=== PATIENT | female | born 1945 | race Two or more races ===

== ENCOUNTER 2017-02-23 19:38 | Inpatient (IN) | payer MEDICARE, MEDICAID ==
[~2017-02-23] VITALS: Ht 170.2 cm; Wt 95.3 kg
[~2017-02-23 19:38] MED LIST: AMLO10TA2 PO; BLOO-668 IN; CARV12.52 PO; CLON0.1T PO; GLIM4TAB2 PO; IBUP-1955 PO; LEVA15HF5 IH; LORA1TAB PO; METF500T4 PO; NITR1PAT5 TD; VALS1TAB54 PO
--- NOTE | 2017-02-23 19:40 | NUR ---
BBRA FROM HOME; CHEST PRESSURE, ON AND OFF. HIGH BLOOD PRESSURE. GOWNED PT. PLACED ON MONITOR. AWAITING MD ORDER
--- NOTE | 2017-02-23 19:50 | NUR ---
DR ERICKSON AT BEDSIDE FOR EVAL
[2017-02-23] MEDS ORDERED: ASPIRIN 325 MG TABLET ONE (19:51)
--- NOTE | 2017-02-23 19:51 | NUR ---
EKG IN PROGRESS
[2017-02-23 19:58] LABS: BASOPHILS # (AUTO) 0.1 /CMM (0.0-0.2); BASOPHILS % (AUTO) 1.5 % (0.0-2.0); EOSINOPHILS # (AUTO) 0.2 /CMM (0.0-0.7); EOSINOPHILS % (AUTO) 4.3 % (0.0-6.0); HEMATOCRIT 38 % (33-45); HEMOGLOBIN 12.5 g/dL (11.5-14.8); LYMPHOCYTES # (AUTO) 1.7 /CMM (0.8-4.8); LYMPHOCYTES % (AUTO) 36.3 % (20.0-44.0); MEAN CORPUSCULAR HEMOGLOBIN 28 PG (26.0-33.0); MEAN CORPUSCULAR HGB CONC 33 g/dl (31.0-36.0); MEAN CORPUSCULAR VOLUME 84 fL (82-100); MONOCYTES # (AUTO) 0.4 /CMM (0.1-1.30); MONOCYTES % (AUTO) 9.2 % (2.0-12.0); NEUTROPHILS # (AUTO) 2.4 /CMM (1.8-8.9); NEUTROPHILS % (AUTO) 48.7 % (43.0-81.0); PLATELET COUNT (AUTO) 72 /CMM (150-450); RDW COEFFICIENT OF VARIATION 14.5 (11.5-15.0); RED BLOOD CELL COUNT(AUTO) 4.49 MIL/uL (4.0-5.2); WHITE BLOOD COUNT (AUTO) 4.8 K/uL (4.3-11.0)
[2017-02-23] MEDS ORDERED: ASPIRIN 325 MG TABLET PO ONE (20:00)
[2017-02-23 20:11] LABS: CALCIUM, SERUM 8.2 mg/dL (8.5-10.1); CARBON DIOXIDE 28 mmol/L (21-32); CHLORIDE 109 mmol/L (98-107); CREATININE 0.8 mg/dL (0.6-1.3); GLUCOSE 222 mg/dL (74-106); POTASSIUM 3.8 mmol/L (3.5-5.1); SODIUM SERUM 143 mmol/L (136-145); UREA NITROGEN, BLOOD 13 mg/dL (7-18)
[2017-02-23 20:20] LABS: TROPONIN I < 0.017 ng/mL (0.00-0.056)
[2017-02-23 20:29] LABS: INR 0.98 (0.87-1.13); PROTHROMBIN TIME 10.2 SECS (9.5-12.7)
[2017-02-23] MEDS ORDERED: CLONIDINE HCL 0.1 MG TABLET PO ONE (20:30)
--- NOTE | 2017-02-23 20:33 | NUR ---
CLINICAL INFORMATICS STRATEGIST AT BEDSIDE
[2017-02-23] MEDS ORDERED: CLONIDINE HCL 0.1 MG TABLET ONE ×2 (20:34→22:20)
--- NOTE | 2017-02-23 20:50 | NUR ---
GAVE REPORT TO [facility]-[address] LEE
[2017-02-23 21:00] VITALS: BP 187/84
--- NOTE | 2017-02-23 21:00 | NUR ---
PT TRANSPORTED TO 306 IN STABLE CONDITION VIA ACLS PROTOCOL
[2017-02-23 21:15] LABS: BASOPHILS % (MANUAL) 1 % (0.0-2.0); EOSINOPHILS % (MANUAL) 2 % (0-4); LYMPHOCYTES % (MANUAL) 33 % (16-48); MONOCYTES % (MANUAL) 5 % (0-11.0); NEUTROPHILS % (MANUAL) 59 (42-76)
--- NOTE | 2017-02-23 21:20 | NUR ---
EHS TEACHER NOTE RECEIVED PATIENT FROM ER VIA BRITTNEY PATIENT IS ALERT AND ORIENTEDX3, AMBULATORY, COMPLAINS OF MILD SOB, DENIES CHEST PAIN AT THIS TIME. IV ON LEFT HAND IS PATENT AND INTACT. SKIN IS INTACT. PATIENT'S BP IS 187/84 PULSE 70. WILL CONTACT MD LEE FOR ADMISSION ORDER. TELE MONITOR SR 72. SRX2, BED IN LOW POSITION, CALL LIGHT WITHIN REACH, WILL CONTINUE TO MONITOR PATIENT.
--- NOTE | 2017-02-23 21:30 | NUR ---
PATTERN FINISHER NOTE GOT AN ADMISSION ORDER FROM DR LEE. REGARDING HER HOME MEDS, PT ALREADY TOOK ALL THE DAILY BP MED, WILL START FROM TOMORROW MORNING. ABOUT CLONIDINE 0.1MG WEEKLY PATCH, PATIENT STATED THAT SHE PUT A NEW PATCH ON HER RIGHT BACK TODAY, WILL RESUME IT FROM NEXT WEEK. PLACED PRN MED ORDERS ONLY. WILL SEND HOME MEDS TO PHARMACY IN THE MORNING. ORDERS PLACED IN THE SYSTEM, WILL CARRY OUT ACCORDINGLY.
[2017-02-23] MEDS ORDERED: ENOXAPARIN SODIUM 80 MG/0.8 ML DISP.SYRIN SQ ONE (22:18)
[2017-02-23] MEDS ORDERED: ATORVASTATIN 10 MG TABLET ONE (22:21)
[2017-02-23] MEDS: ATORVASTATIN 10 MG TABLET PO SCH (22:24)
[2017-02-23] MEDS ORDERED: *INSULIN REGULAR(HUMULIN R)HUM 100 UNIT/ML VIAL SQ PRN (22:30)
[2017-02-23] MEDS ORDERED: ACETAMINOPHEN 325 MG TABLET PO PRN (22:30)
[2017-02-23] MEDS ORDERED: ENOXAPARIN SODIUM 80 MG/0.8 ML DISP.SYRIN SQ SCH (22:30)
[2017-02-23] MEDS ORDERED: CLONIDINE HCL 0.1 MG TABLET PO PRN (22:30)
[2017-02-23] MEDS ORDERED: LORAZEPAM 1 MG TABLET PO PRN (22:30)
[2017-02-23] MEDS ORDERED: MORPHINE SULFATE INJ 2 MG/ML DISP.SYRIN IV PRN (22:30)
[2017-02-23] MEDS ORDERED: DEXTROSE 50%-WATER 50 ML DISP.SYRIN IV PRN (22:30)
[2017-02-23] MEDS ORDERED: LORAZEPAM 1 MG TABLET ONE (22:32)
--- NOTE | 2017-02-23 22:40 | NUR ---
CASH POSTER NOTE CLONIDINE 0.1MG PO GIVEN SINCE HER BP UPON ADMISSION WAS 187/84. WILL REASSESS HER BP AROUND MIDNIGHT. ATIVAN 1MG PO ALSO GIVEN PER PATIENT'S REQUEST FOR SLEEP.
[2017-02-23] MEDS ORDERED: IBUPROFEN 600 MG TABLET PO PRN (23:00)
[2017-02-24] VITALS (7 sets, daily range): BP systolic 119–142; BP diastolic 52–79
[2017-02-24] MEDS: INSULIN REGULAR, HUMAN 100 UNIT/ML 3 ML VIAL SQ PRN ×2 (05:46→21:38)
[2017-02-24] MEDS: BLOOD SUGAR DIAGNOSTIC 1 EACH STRIP VI SCH ×4 (05:46→21:27)
[2017-02-24 06:40] LABS: BASOPHILS % (AUTO) 0.5 % (0.0-2.0); EOSINOPHILS # (AUTO) 0.2 /CMM (0.0-0.7); EOSINOPHILS % (AUTO) 4.6 % (0.0-6.0); HEMATOCRIT 36 % (33-45); LYMPHOCYTES # (AUTO) 1.8 /CMM (0.8-4.8); LYMPHOCYTES % (AUTO) 42.5 % (20.0-44.0); MEAN CORPUSCULAR HEMOGLOBIN 28 PG (26.0-33.0); MEAN CORPUSCULAR HGB CONC 34 g/dl (31.0-36.0); MEAN CORPUSCULAR VOLUME 84 fL (82-100); MONOCYTES # (AUTO) 0.4 /CMM (0.1-1.30); MONOCYTES % (AUTO) 8.8 % (2.0-12.0); NEUTROPHILS # (AUTO) 1.8 /CMM (1.8-8.9); NEUTROPHILS % (AUTO) 43.6 % (43.0-81.0); PLATELET COUNT (AUTO) 64 /CMM (150-450); RDW COEFFICIENT OF VARIATION 15.2 (11.5-15.0); RED BLOOD CELL COUNT(AUTO) 4.24 MIL/uL (4.0-5.2); WHITE BLOOD COUNT (AUTO) 4.2 K/uL (4.3-11.0)
--- NOTE | 2017-02-24 06:44 | NUR ---
DATABASE ADMINISTRATION MANAGER NOTE PATIENT IS RESTING IN BED COMFORTABLY, NO S/S OF RESPIRATORY DISTRESS OR PAIN AT THIS TIME. IV ON LEFT HAND IS PATENT AND INTACT, HL ONLY. BS 146 THIS MORNING, 2UNITS OF INSULIN COVERAGE. TELE MONITOR SB 54. WILL ENDORSE TO DAY SHIFT NURSE FOR ANNA.
[2017-02-24 07:05] LABS: CALCIUM, SERUM 8.4 mg/dL (8.5-10.1); CREATININE 0.6 mg/dL (0.6-1.3); MAGNESIUM 1.9 mg/dL (1.8-2.4); POTASSIUM 4.2 mmol/L (3.5-5.1)
[2017-02-24 07:50] LABS: THYROID STIMULATING HORMONE 2.581 uIU/mL (0.358-3.74)
[2017-02-24] MEDS ORDERED: ACETAMINOPHEN ES 500 MG TABLET PO PRN (08:00)
--- NOTE | 2017-02-24 08:08 | NUR ---
TELE/RN RECEIVED PATIENT RESTING IN BED ALERT AND ORIENTED X4, IN NO APPARENT DISTRESS, RESPIRATIONS EVEN AND UNLABORED, ON 02 AT 2LPM VIA NC. PER TELE MONITRO SB 56. PATIENT DENIES PAIN OR DISCOMFORT AT THIS TIME. NO PRESENTS OF CHEST PAIN, N/V. IV TO LEFT HAND 20 INTACT H/L. SAFETY MEASURES RENDERED, CALL LIGHT PLACED WITHIN REACH. WILL CONTINUE TO MONITOR.
[2017-02-24] MEDS ORDERED: LOSARTAN POTASSIUM 50 MG TABLET PO SCH (09:30)
[2017-02-24 09:50] LABS: THYROID STIMULATING HORMONE 2.666 uIU/mL (0.358-3.74)
--- NOTE | 2017-02-24 09:54 | NUR ---
tele/rn notes discussed poc with dr. Watkins, requested for ct results that patient had done 10 days ago from [facility] [place] office. waiting on fax
[2017-02-24] MEDS ORDERED: IBUPROFEN 600 MG TABLET PO PRN (10:00)
[2017-02-24] MEDS ORDERED: ALBUTEROL FS 2.5 MG/3 ML VIAL.NEB NEB PRN (10:00)
[2017-02-24] MEDS ORDERED: NITROGLYCERIN PATCH 0.2 MG/HR PATCH.TD24 TD SCH ×3 (10:00→15:00)
[2017-02-24] MEDS ORDERED: Medication Not On Formulary EA (Valsartan/Hydrochlorothiazide (Diovan Hct 320-25 Mg Tabl PO SCH (10:00)
[2017-02-24] MEDS ORDERED: LORAZEPAM 1 MG TABLET PO PRN (10:00)
[2017-02-24] MEDS ORDERED: Medication Not On Formulary EA (Levalbuterol Tartrate (Xopenex Hfa) 2 PUFF) IH PRN (10:00)
[2017-02-24] MEDS ORDERED: CLONIDINE HCL 0.1 MG TABLET PO PRN (10:00)
[2017-02-24] MEDS: ENOXAPARIN SODIUM 80 MG/0.8 ML DISP.SYRIN SQ SCH ×2 (10:36→21:28)
[2017-02-24] MEDS: METFORMIN 500 MG TABLET PO SCH ×2 (10:38→16:42)
[2017-02-24] MEDS: GLIMEPIRIDE 4 MG TABLET PO SCH ×2 (10:39→16:42)
[2017-02-24] MEDS: CARVEDILOL 12.5 MG TABLET PO SCH ×2 (10:39→16:43)
[2017-02-24] MEDS: HYDROCHLOROTHIAZIDE 25 MG TABLET PO SCH (10:40)
[2017-02-24] MEDS: AMLODIPINE BESYLATE 10 MG TABLET PO SCH (10:40)
[2017-02-24 10:49] LABS: EOSINOPHILS % (MANUAL) 1 % (0-4); LYMPHOCYTES % (MANUAL) 41 % (16-48); MONOCYTES % (MANUAL) 4 % (0-11.0); NEUTROPHILS % (MANUAL) 54 (42-76)
--- NOTE | 2017-02-24 12:14 | NUR ---
TELE/RN NOTES 1200 BLOOD SUGAR CHECK 189MG/DL. PATIENT REFUSING INSULIN COVERAGE. DESPITE OF INSTRUCTIONS GIVEN ON THE IMPORTANCE OF MEDICATION COMPLIANCE, RISK AND BENEFITS PATIENT CONTINUED TO REFUSE.
[2017-02-24] MEDS ORDERED: CLON1PAT2 TD (16:03)
--- NOTE | 2017-02-24 18:36 | NUR ---
TELE/RN NOTES PATIENT RESTING IN BED STABLE, NO SIGNIFICANT CHANGES IN CONDITION, VITAL SIGNS STABLE. ALL DUE MEDICATIONS GIVEN, ALL NEEDS MET AND ATTENDED. PT DENIED ANY CHEST PAIN OR GENERALIZED PAIN DURING THROUGHOUT THE DAY. SAFETY/FALL MEASURES RENDERED, CALL LIGHT PLACED WITHIN REACH. WILL ENDORSE CARE TO ASSET LIABILITY ANALYST FOR ANNA
--- NOTE | 2017-02-24 19:51 | NUR ---
TELE DOBBY LOOMS PEGGER INITIAL NOTES SEEN PT IN BED AFTER GOT REPORT FROM AM NURSE, AWAKE AND ALERT JONATHON SPEAKING , AWARE OF HER STRESS TEST IN AM . DENIES ANY CHEST PAIN OR ANY DISCOMFORT AT THIS TIME. HEPLOCK PATENT AND INTACT. SHE'S ON TELE SR HEART RATE 65 PER MONITOR. PT ALSO AWARE THAT SHE WILL BE NPO AFTER MIDNIGHT BECAUSE OF HER TEST IN AM. KEPT HER WARM AND COMFORTABLE AT ALL TIMES. PLACE CALL LIGHT AT REACH. WILL CONTINUE TO MONITOR.
[2017-02-24] MEDS: ATORVASTATIN 10 MG TABLET PO SCH (21:27)
--- NOTE | 2017-02-24 21:38 | NUR ---
TELE FREIGHT BRAKE OPERATOR NOTES ROUTINE MEDS GIVEN AND BLOOD SUGAR CHECKED 131, PT REFUSED INSULIN , NPO AFTER MIDNIGHT FOR HER STRESS TEST . NO IVF INFUSING AT THIS TIME, SHE ALSO REFUSED TO EAT . NO SIGNS OF HYPO GLYCEMIA NOTED. SHE STATED SHE HAVE MEDICINE FOR SUGAR THAT IS PO ONLY AND SHE JUST TOOK THIS AFTERNOON AFTER DINNER. WILL CONTINUE TO MONITOR.
[2017-02-25 00:07] VITALS: BP 128/69
[2017-02-25 00:12] VITALS: BP 128/69
[2017-02-25 04:37] VITALS: BP 131/56
[2017-02-25 06:30] LABS: BASOPHILS % (AUTO) 0.5 % (0.0-2.0); EOSINOPHILS # (AUTO) 0.1 /CMM (0.0-0.7); EOSINOPHILS % (AUTO) 3.2 % (0.0-6.0); HEMATOCRIT 36 % (33-45); LYMPHOCYTES # (AUTO) 1.5 /CMM (0.8-4.8); LYMPHOCYTES % (AUTO) 38.7 % (20.0-44.0); MEAN CORPUSCULAR HEMOGLOBIN 28 PG (26.0-33.0); MEAN CORPUSCULAR HGB CONC 33 g/dl (31.0-36.0); MEAN CORPUSCULAR VOLUME 85 fL (82-100); MONOCYTES # (AUTO) 0.3 /CMM (0.1-1.30); NEUTROPHILS # (AUTO) 1.9 /CMM (1.8-8.9); NEUTROPHILS % (AUTO) 49.6 % (43.0-81.0); PLATELET COUNT (AUTO) 58 /CMM (150-450); RDW COEFFICIENT OF VARIATION 15.5 (11.5-15.0); RED BLOOD CELL COUNT(AUTO) 4.28 MIL/uL (4.0-5.2); WHITE BLOOD COUNT (AUTO) 3.8 K/uL (4.3-11.0)
[2017-02-25] MEDS: BLOOD SUGAR DIAGNOSTIC 1 EACH STRIP VI SCH ×2 (06:52→12:06)
[2017-02-25 06:57] LABS: ALBUMIN 2.6 g/dL (3.4-5.0); BILIRUBIN,TOTAL 0.6 mg/dL (0.2-1.0); CALCIUM, SERUM 8.5 mg/dL (8.5-10.1); CREATININE 0.5 mg/dL (0.6-1.3)
[2017-02-25 07:25] LABS: BAND % (MANUAL) 2 % (0.0-5.0); EOSINOPHILS % (MANUAL) 4 % (0-4); LYMPHOCYTES % (MANUAL) 35 % (16-48); MONOCYTES % (MANUAL) 7 % (0-11.0); NEUTROPHILS % (MANUAL) 52 (42-76)
--- NOTE | 2017-02-25 07:30 | NUR ---
TELE MEDICAL BILLING ASSOCIATE CLOSING NOTES PT SAW SITTING ON THE CHAIR AFTER SHE DID HER USUAL MORNING ROUTINE. BLOOD SUGAR CHECKED DONE 142, NO INSULIN COVERAGE AT THIS TIME BECAUSE PT NPO FOR STRESS TEST. NO SIGNS OG HYPER GLYCEMIA NOTED. SLEPT WELL AND BEEN STABLE SIXTO THE NIGHT. TELE SR PER MONITOR. KEPT HER WARM AND COMFORTABLE AT ALL TIMES. DENIES ANY CHEST PAIN. ENDORSE TO AM NURSE .
--- NOTE | 2017-02-25 07:40 | NUR ---
WOOD FLOUR MILLER NOTES PT IN BED, ASLEEP, EASY TO AROUSE, ALERT AND ORIENTED, NO COMPLAINT OF PAIN OR ANY DISCOMFORT, BREATHING PATTERN NORMAL, PT INFORMED OF PLAN OF CARE, VERBALIZED UNDERSTANDING, PT FOR STRESS TEST TODAY, CALL LIGHT WITHIN REACH.
[2017-02-25 08:00] VITALS: BP 140/61
[2017-02-25] MEDS ORDERED: REGADENOSON 0.4 MG/5 ML DISP.SYRIN IVP ONE (08:00)
[2017-02-25] MEDS: GLIMEPIRIDE 4 MG TABLET PO SCH (09:00)
[2017-02-25] MEDS ORDERED: VALSARTAN 80 MG TABLET PO SCH (09:00)
[2017-02-25] MEDS ORDERED: ERGOCALCIFEROL (VITAMIN D 2) 50,000 UNIT CAPSULE PO SCH (09:30)
--- NOTE | 2017-02-25 11:28 | NUR ---
RN MS NOTES PT IN BED, AWAKE, ALERT AND ORIENTED, DENIES PAIN, NOT IN DISTRESS, COMPLETED STRESS TEST, TOLERATED WELL, PLAN OF CARE DISCUSSED WITH PT, VERBALIZED UNDERSTANDING.
[2017-02-25] MEDS: HYDROCHLOROTHIAZIDE 25 MG TABLET PO SCH (11:47)
[2017-02-25] MEDS: METFORMIN 500 MG TABLET PO SCH (11:47)
[2017-02-25] MEDS: AMLODIPINE BESYLATE 10 MG TABLET PO SCH (11:47)
[2017-02-25] MEDS: CARVEDILOL 12.5 MG TABLET PO SCH (11:48)
[2017-02-25] MEDS: ENOXAPARIN SODIUM 80 MG/0.8 ML DISP.SYRIN SQ SCH (11:58)
[2017-02-25 16:00] VITALS: BP 148/70
--- NOTE | 2017-02-25 16:20 | NUR ---
RN MS NOTES PT IN BED, AWAKE, ALERT AND ORIENTED, DENIES ANY CHEST PAIN, NO OTHER COMPLAINT OF PAIN OR ANY DISCOMFORT, BREATHING PATTERN NORMAL, RECEIVED DISCHARGE ORDER FROM DR. LEE, PT INFORMED, DISCHARGE MEDICATIONS AND INSTRUCTIONS PROVIDED TO PT, PT TO SEE MD IN 3 DAYS, VERBALIZED UNDERSTANDING, BELONGINGS ACCOUNTED FOR, PT REFUSED FLU AND PNA VACCINES, EDUCATION PROVIDED. PICKED UP BY FAMILY MEMBERS, LEFT IN STABLE CONDITION.
[2017-03-02] MEDS ORDERED: CLONIDINE HCL 0.1MG/24H PTWK 1 EA PATCH TD SCH (09:00)
== END 2017-02-25 16:00 | disposition home or self-care (01) | DRG 303 ==
LOC: ER 19:42 → TELE 20:52 → MED 02-25 10:43
PROVIDERS: ADMIT Family Medicine; ATTEND Family Medicine
DX: I25.119 Atherosclerotic heart disease of native coronary artery with unspecified angina pectoris (principal); D61.818 Other pancytopenia; D69.6 Thrombocytopenia, unspecified; E11.65 Type 2 diabetes mellitus with hyperglycemia; E66.01 Morbid (severe) obesity due to excess calories; I11.0 Hypertensive heart disease with heart failure; I50.9 Heart failure, unspecified; I47.1 Supraventricular tachycardia; I48.91 Unspecified atrial fibrillation; K21.9 Gastro-esophageal reflux disease without esophagitis; I10 Essential (primary) hypertension; G89.29 Other chronic pain; Z79.84 Long term (current) use of oral hypoglycemic drugs; G47.33 Obstructive sleep apnea (adult) (pediatric); F41.9 Anxiety disorder, unspecified; E78.5 Hyperlipidemia, unspecified; R41.3 Other amnesia; R32 Unspecified urinary incontinence; F43.10 Post-traumatic stress disorder, unspecified; Z79.899 Other long term (current) drug therapy; G47.00 Insomnia, unspecified; H91.90 Unspecified hearing loss, unspecified ear; D63.8 Anemia in other chronic diseases classified elsewhere; E03.9 Hypothyroidism, unspecified; Z68.32 Body mass index [BMI] 32.0-32.9, adult; E11.9 Type 2 diabetes mellitus without complications; M17.0 Bilateral primary osteoarthritis of knee
CPT/HCPCS: 36415; 71010-TC; 80048-TC; 80053-TC; 80061-TC; 82306; 82962-TC; 83540-TC; 83735-TC; 84439-TC; 84443-TC; 84484-TC; 85025-TC; 85730-TC; 87081-TC; 93307-TC; A4606; A9502; J1650; J1815; J2785; Z7610

== ENCOUNTER 2017-07-15 21:39 | Emergency (ER) | payer MEDICARE, MEDICAID ==
[~2017-07-15] VITALS: Ht 165.1 cm; Wt 99.8 kg
[~2017-07-15 21:39] MED LIST changes: +CLON1PAT2 TD; +LEVA15HF4 IH; -LEVA15HF5 IH; -NITR1PAT5 TD
[2017-07-15] MEDS ORDERED: LORAZEPAM 1 MG TABLET PO ONE (23:00)
[2017-07-15] MEDS ORDERED: LORAZEPAM 1 MG TABLET ONE (23:09)
[2017-07-15 23:12] LABS: APPEARANCE,URINE CLEAR (CLEAR); BILIRUBIN,URINE NEGATIVE (NEGATIVE); BLOOD, URINE NEGATIVE Ery/uL (NEGATIVE); COLOR,URINE YELLOW (YELLOW); KETONES,URINE NEGATIVE (NEGATIVE); LEUKOCYTE ESTERASE ,URINE NEGATIVE (NEGATIVE); NITRITE, URINE NEGATIVE (NEGATIVE); PH,URINE 7.5 (5.0-8.0); PROTEIN,URINE NEGATIVE (NEGATIVE); UGLUCOSE NEGATIVE (NEGATIVE); UROBILINOGEN,URINE 0.2 EU/dL (0.2)
--- NOTE | 2017-07-15 23:15 | NUR ---
PT PRESENTED TO THE ER WITH A C/O ANXIETY AND HIGH BLOOD PRESSURE. PT AMBULATED TO BED #13. PT IS ON THE MONITOR AND CONTINUOUS PULSE OX. FAMILY IS AT THE BEDSIDE.
--- NOTE | 2017-07-16 00:05 | NUR ---
Patient discharged to home in stable condition. Written and verbal after care instructions given. Patient verbalizes understanding of instruction AND RX. PT REC'D A COPY OF ALL LABS AND EKG. PT'S FAMILY IS DRIVING PT HOME. VSS. PT AMBULATED OUT WITH A STEADY GAIT.
[2017-07-16 00:14] VITALS: BP 150/65
== END 2017-07-16 00:05 | disposition home or self-care (01) ==
LOC: ER 21:40
DX: R06.02 Shortness of breath (principal); I10 Essential (primary) hypertension; E11.9 Type 2 diabetes mellitus without complications; F41.9 Anxiety disorder, unspecified; G89.29 Other chronic pain
CPT/HCPCS: 71045-TC; 81000-TC; A4606; Z7610

== ENCOUNTER 2018-11-17 10:58 | Emergency (ER) | payer MEDICARE, MEDICAID ==
[~2018-11-17] VITALS: Ht 160 cm; Wt 98.4 kg
[~2018-11-17 10:58] MED LIST changes: -AMLO10TA2 PO; +AMLO10TA7 PO; +METF-440 PO; -METF500T4 PO
--- NOTE | 2018-11-17 11:05 | NUR ---
PT BIB DAUGHTER C/O R SHOULDER PAIN, UNABLE TO MOVE. REDUCED ON THE 11/07/18. STILL HURTING, PT IS AAOX3, NOT IN RESPIRATORY DISTRESS, KEPT RESTED AND COMFORTABLE, WILL CONTINUE TO MONITOR.
--- NOTE | 2018-11-17 11:14 | NUR ---
DR. MCKEON AT BEDSIDE FOR EVAL.
--- NOTE | 2018-11-17 11:27 | NUR ---
RPG PROGRAMMER ANALYST AT BEDSIDE FOR XRAY.
[2018-11-17] MEDS ORDERED: HYDROCODONE/APAP 5/325MG 1 EACH TABLET ONE (11:55)
[2018-11-17] MEDS ORDERED: IBUPROFEN 600 MG TABLET PO ONE (11:55)
[2018-11-17] MEDS: IBUPROFEN 600 MG TABLET PO ONE (12:01)
[2018-11-17] MEDS: HYDROCODONE/APAP 5/325MG 1 EACH TABLET PO ONE (12:01)
--- NOTE | 2018-11-17 12:06 | NUR ---
Patient discharged to home in stable condition. Written and verbal after care instructions given. Patient verbalizes understanding of instruction.
[2018-11-17 12:07] VITALS: BP 148/82
== END 2018-11-17 12:08 | disposition home or self-care (01) ==
LOC: ER 11:02
DX: S42.291A Other displaced fracture of upper end of right humerus, initial encounter for closed fracture (principal); I10 Essential (primary) hypertension; E11.9 Type 2 diabetes mellitus without complications; F41.9 Anxiety disorder, unspecified; G89.29 Other chronic pain; Z98.890 Other specified postprocedural states; Z79.84 Long term (current) use of oral hypoglycemic drugs; Z79.899 Other long term (current) drug therapy; W19.XXXA Unspecified fall, initial encounter; Y93.89 Activity, other specified; Y92.89 Other specified places as the place of occurrence of the external cause; Y99.8 Other external cause status
CPT/HCPCS: 73030-TC

== ENCOUNTER 2022-07-25 13:33 | Inpatient (IN) | payer MEDICARE, OTHER ==
[~2022-07-25] VITALS: Ht 165.1 cm; Wt 123.2 kg
[~2022-07-25 13:33] MED LIST changes: +AMLO-213 PO; -AMLO10TA7 PO; -GLIM4TAB2 PO; +GLIM4TAB37 PO; -VALS1TAB54 PO; +VALS1TAB8 PO
--- NOTE | 2022-07-25 13:45 | NUR ---
BIBA RA60 From Home Leg swelling/SOB/Weakness. Chinese speaking only
--- NOTE | 2022-07-25 14:01 | NUR ---
blood sample obtained sent to lab
--- NOTE | 2022-07-25 14:01 | NUR ---
established iv line left hand 22 g , infusing well
[2022-07-25 14:46] LABS: BASOPHILS % (AUTO) 0.4 % (0.0-2.0); EOSINOPHILS % (AUTO) 2.4 % (0.0-6.0); HEMATOCRIT 34 % (33-45); HEMOGLOBIN 10.9 g/dL (11.5-14.8); LYMPHOCYTES # (AUTO) 1.6 K/uL (0.8-4.8); MEAN CORPUSCULAR HGB CONC 32 g/dl (31.0-36.0); MEAN CORPUSCULAR VOLUME 89 fL (82-100); MONOCYTES # (AUTO) 0.8 K/uL (0.1-1.30); NEUTROPHILS # (AUTO) 3.7 K/uL (1.8-8.9); NEUTROPHILS % (AUTO) 59.2 % (43.0-81.0); PLATELET COUNT (AUTO) 80 K/uL (150-450); RED BLOOD CELL COUNT(AUTO) 3.86 MIL/uL (4.0-5.2); WHITE BLOOD COUNT (AUTO) 6.3 K/uL (4.3-11.0)
--- NOTE | 2022-07-25 15:03 | NUR ---
sent covid swab to lab
[2022-07-25 15:11] LABS: ALANINE AMINOTRANSFERASE 39 U/L (12-78); ALBUMIN 2.3 g/dL (3.4-5.0); ALKALINE PHOSPHATASE 88 U/L (46-116); ASPARTATE AMINOTRANSFERASE 37 U/L (15-37); BILIRUBIN,DIRECT 0.5 mg/dL (0.0-0.2); CALCIUM, SERUM 8.1 mg/dL (8.5-10.1); CARBON DIOXIDE 25 mmol/L (21-32); CHLORIDE 108 mmol/L (98-107); CREATININE 2.5 mg/dL (0.6-1.3); GLUCOSE 234 mg/dL (74-106); POTASSIUM 5.1 mmol/L (3.5-5.1); SODIUM SERUM 141 mmol/L (136-145); TOTAL PROTEIN, SERUM 6.1 g/dL (6.4-8.2)
[2022-07-25 15:29] LABS: UREA NITROGEN, BLOOD 84 mg/dL (7-18)
[2022-07-25] MEDS ORDERED: FUROSEMIDE 20 MG/2 ML VIAL IV ONE (16:00)
[2022-07-25] MEDS ORDERED: ASPIRIN 325 MG TABLET PO ONE (16:00)
[2022-07-25] MEDS ORDERED: HYDROCODONE/APAP 5/325MG TABLET PO PRN (16:30)
[2022-07-25] MEDS ORDERED: DEXTROSE 50%-WATER 50 ML DISP.SYRIN IV PRN (16:30)
[2022-07-25] MEDS ORDERED: MAG HYDROX/AL HYDROX/SIMETH 30 ML UDC PO PRN (16:30)
[2022-07-25] MEDS ORDERED: MORPHINE SULFATE INJ 2 MG/ML DISP.SYRIN IV PRN (16:30)
[2022-07-25] MEDS ORDERED: Z GUARD REMEDY 4 OZ OINT TP PRN (16:30)
[2022-07-25] MEDS ORDERED: MAGNESIUM HYDROXIDE 30 ML UDC PO PRN (16:30)
--- NOTE | 2022-07-25 16:39 | NUR ---
ROOM 327-2
[2022-07-25 16:57] LABS: EOSINOPHILS % (MANUAL) 3 % (0-4); LYMPHOCYTES % (MANUAL) 23 % (16-48); MONOCYTES % (MANUAL) 11 % (0-11.0); NEUTROPHILS % (MANUAL) 63 (42-76)
[2022-07-25] MEDS: BLOOD SUGAR DIAGNOSTIC 1 EACH STRIP IN SCH ×2 (17:30→22:26)
--- NOTE | 2022-07-25 18:14 | NUR ---
called the floor nurse multiple times , no answer
--- NOTE | 2022-07-25 18:14 | NUR ---
floor supervisor advised to give report at bedside
[2022-07-25] MEDS ORDERED: LEVALBUTEROL HCL NEB 1.25 MG/0.5 ML VIAL.NEB NEB PRN (18:30)
[2022-07-25] MEDS ORDERED: LINA145C PO (19:00)
[2022-07-25] MEDS ORDERED: FURO40TA5 PO (19:00)
[2022-07-25] MEDS ORDERED: ESCI10TA PO (19:00)
[2022-07-25] MEDS ORDERED: CETI10TA14 PO (19:00)
[2022-07-25] MEDS ORDERED: ERGO500093 PO (19:00)
[2022-07-25] MEDS ORDERED: AMIT25TA9 PO (19:00)
[2022-07-25] MEDS ORDERED: CELE-85 PO (19:00)
[2022-07-25] MEDS ORDERED: MONT10TA22 PO (19:00)
[2022-07-25] MEDS ORDERED: CLON1PAT TD (19:00)
[2022-07-25] MEDS ORDERED: FLUT1BLS6 INH (19:00)
[2022-07-25] MEDS ORDERED: DEXL60CA3 PO (19:00)
[2022-07-25] MEDS ORDERED: SPIR25TA6 PO (19:00)
[2022-07-25] MEDS ORDERED: GABA300C PO (19:00)
[2022-07-25] MEDS ORDERED: DAPA10TA PO (19:00)
[2022-07-25] MEDS ORDERED: POTA-88 PO (19:00)
[2022-07-25] MEDS ORDERED: MIRT-91 PO (19:00)
[2022-07-25] MEDS ORDERED: POLY15DR40 EACHEYE (19:00)
[2022-07-25] MEDS ORDERED: SACU1TAB4 PO (19:00)
[2022-07-25] MEDS ORDERED: DILT180T9 PO (19:00)
[2022-07-25] MEDS ORDERED: DULA1.5P SQ (19:00)
--- NOTE | 2022-07-25 19:10 | NUR ---
LIBRARY CIRCULATION ASSISTANTPASTE UP WORKER NOTES RECEIVED PATIENT AWAKE AND SITTING IN BED. PATIENT CAME FROM ER AT 1840. THE MORNING SHIFT NURSE JANN GAVE REPORT FOR THE PATIENT. PATIENT IS A/O TIMES 3. NO PAIN NOTED. ON 02 INHALATION VIA NASAL CANNULA AT 4L/MIN . 02 SAT NOTED 98%. LIBYAN SPEAKING. ABLE TO MAKE NEEDS KNOWN. SON AT THE BED SIDE. ALL NEEDS ATTENDED. ON TELE MONITOR READING SR 85. IV ACCESS AT THE LEFT HAND G # 22 INTACT. OVERALL SKIN INTACT. BRUISE NOTED ON THE RIGHT UPPER ARM. ALL THE BELONGING ACCOUNTED AND SIGNED FOR. PATIENT ABLE TO USE BED SIDE COMMODE. ALL SAFETY MEASURES IN PLACE. BED LOCKED IN THE LOWEST POSITION. CALL LIGHT AND TABLE IN EASY REACH . SIDE RAILS UP TIMES 2. WILL CONTINUE TO MONITOR CLOSELY.
[2022-07-25] MEDS: GLIMEPIRIDE 4 MG TABLET PO SCH (19:45)
[2022-07-25 20:00] VITALS: BP 148/62
[2022-07-25] MEDS ORDERED: HEPARIN SODIUM, PORCINE 5000 UNITS/1 ML VIAL SQ SCH (21:00)
[2022-07-25] MEDS: INSULIN REGULAR, HUMAN 100 UNIT/ML 3 ML VIAL SQ PRN (22:28)
[2022-07-25 22:38] LABS: BILIRUBIN,URINE NEGATIVE (NEGATIVE); COLOR,URINE YELLOW (YELLOW); LEUKOCYTE ESTERASE ,URINE NEGATIVE (NEGATIVE); NITRITE, URINE NEGATIVE (NEGATIVE); PH,URINE 5.5 (5.0-8.0); PROTEIN,URINE TRACE mg/dl (NEGATIVE); UGLUCOSE NEGATIVE (NEGATIVE); UROBILINOGEN,URINE 0.2 EU/dL (0.2)
[2022-07-25 22:43] LABS: BACTERIA,URINE Few /HPF (None Seen); SQUAMOUS EPITHELIAL CELL,UR Few /HPF (None Seen); WBC,URINE 0-2 /HPF (0-3)
[2022-07-26] VITALS: BP 139/79
[2022-07-26 04:00] VITALS: BP 112/83
[2022-07-26] MEDS: BLOOD SUGAR DIAGNOSTIC 1 EACH STRIP IN SCH ×4 (05:56→22:07)
[2022-07-26 06:35] LABS: BASOPHILS % (AUTO) 0.3 % (0.0-2.0); HEMATOCRIT 30 % (33-45); HEMOGLOBIN 9.8 g/dL (11.5-14.8); LYMPHOCYTES # (AUTO) 1.6 K/uL (0.8-4.8); LYMPHOCYTES % (AUTO) 28.1 % (20.0-44.0); MEAN CORPUSCULAR HGB CONC 32 g/dl (31.0-36.0); MEAN CORPUSCULAR VOLUME 88 fL (82-100); MONOCYTES % (AUTO) 18.3 % (2.0-12.0); NEUTROPHILS # (AUTO) 2.7 K/uL (1.8-8.9); NEUTROPHILS % (AUTO) 49.3 % (43.0-81.0); PLATELET COUNT (AUTO) 58 K/uL (150-450); RED BLOOD CELL COUNT(AUTO) 3.43 MIL/uL (4.0-5.2); WHITE BLOOD COUNT (AUTO) 5.5 K/uL (4.3-11.0)
[2022-07-26 07:16] LABS: CALCIUM, SERUM 8.4 mg/dL (8.5-10.1); CARBON DIOXIDE 29 mmol/L (21-32); CHLORIDE 110 mmol/L (98-107); CREATININE 1.6 mg/dL (0.6-1.3); GLUCOSE 122 mg/dL (74-106); MAGNESIUM 2.5 mg/dL (1.8-2.4); POTASSIUM 4.8 mmol/L (3.5-5.1); SODIUM SERUM 143 mmol/L (136-145); UREA NITROGEN, BLOOD 78 mg/dL (7-18)
[2022-07-26 07:22] LABS: CHOLESTEROL 169 mg/dL (<200); HDL CHOLESTEROL 43 mg/dL (40-60); THYROID STIMULATING HORMONE 2.128 uIU/mL (0.358-3.74); TRIGLYCERIDES 67 mg/dL (30-150)
--- NOTE | 2022-07-26 07:30 | NUR ---
COMPUTER PROGRAMMER CHIEF CLOSING NOTES PATIENT IS AWAKE AND SITTING IN BED. PATIENT IS A/O TIMES 3. NO PAIN NOTED. ON 02 INHALATION VIA NASAL CANNULA AT 3L/MIN . 02 SAT NOTED 100%. SAMI SPEAKING. ABLE TO MAKE NEEDS KNOWN. ALL NEEDS ATTENDED. ON TELE MONITOR READING SR 85. IV ACCESS AT THE LEFT HAND G # 22 INTACT. OVERALL SKIN INTACT. BRUISE NOTED ON THE RIGHT UPPER ARM. ALL THE BELONGING ACCOUNTED AND SIGNED FOR. PATIENT ABLE TO USE BED SIDE COMMODE. ALL DUE MEDS GIVEN ORDERED. HELD HEPARIN FOR [address] TOURE ORDER FOR LOW PLATELET. ALL SAFETY MEASURES IN PLACE. BED LOCKED IN THE LOWEST POSITION. CALL LIGHT AND TABLE IN EASY REACH . SIDE RAILS UP TIMES 2. WILL ENDORSE FOR ANNA.
--- NOTE | 2022-07-26 07:30 | NUR ---
TIER IN OPENING NOTES RECEIVED PATIENT ON BED SLEEPING AND A/O X3. ON O2 AT 3LPM VIA NASAL CANNULA TOLERATING WELL. NO SOB NOTED. NOT IN DISTRESS. WITH NO COMPLAINTS OF PAIN AT THIS TIME. ON TELE MONITOR CURRENTLY READING SINUS RHYTHM WITH SOME PACs AT 63BPM. PATIENT NEEDS ASSIST GOING TO THE BEDSIDE COMMODE. WITH IV ACCESS AT THE LEFT HAND G22 SALINE LOCKED, PATENT AND INTACT. SAFETY MEASURES IN PLACED. CALL LIGHT WITHIN REACH. BED ON LOWEST LOCKED POSITION, SIDE RAILS UP X2. WILL CONTINUE TO MONITOR.
[2022-07-26 07:55] LABS: LDL 117 mg/dL (0-99)
[2022-07-26] MEDS: CARVEDILOL 12.5 MG TABLET PO SCH ×2 (08:31→17:16)
[2022-07-26] MEDS: GLIMEPIRIDE 4 MG TABLET PO SCH ×2 (08:37→17:14)
[2022-07-26] MEDS: PANTOPRAZOLE 40 MG TABLET.DR PO SCH (08:37)
[2022-07-26] MEDS: AMLODIPINE BESYLATE 10 MG TABLET PO SCH (08:37)
[2022-07-26 08:53] LABS: ABG BASE EXCESS -4.6 mmol/L; ABG PCO2 30.9 mmHg (35.0-45.0); ABG PO2 85.9 mmHg (75.0-100.0); COHb 0.5 % (0.5-1.5); MetHb 0.3 % (0.0-1.5); O2Hb 95.2 % (94.0-97.0); SITE, ABG Right Radial; VENT MODE, BG RA
[2022-07-26] MEDS ORDERED: FUROSEMIDE 40 MG/4 ML VIAL IV SCH (09:00)
[2022-07-26 12:06] LABS: EOSINOPHILS % (MANUAL) 2 % (0-4); LYMPHOCYTES % (MANUAL) 31 % (16-48); MONOCYTES % (MANUAL) 10 % (0-11.0); NEUTROPHILS % (MANUAL) 57 (42-76)
[2022-07-26] MEDS: INSULIN REGULAR, HUMAN 100 UNIT/ML 3 ML VIAL SQ PRN ×2 (12:32→17:14)
[2022-07-26] MEDS: IPRATROPIUM NEB FS 0.5 MG/2.5 ML AMPUL.NEB NEB SCH ×2 (13:30→20:33)
--- NOTE | 2022-07-26 18:42 | NUR ---
RIBBER CLOSING NOTES PATIENT ON BED RESTING AND A/O X3. ON O2 AT 3LPM VIA NASAL CANNULA TOLERATING WELL. NO SOB NOTED. NOT IN DISTRESS. WITH NO COMPLAINTS OF PAIN AT THIS TIME. ON TELE MONITOR CURRENTLY READING SINUS RHYTHM WITH SOME PACs AT 72BPM. PATIENT NEEDS ASSIST GOING TO THE BEDSIDE COMMODE. WITH IV ACCESS AT THE LEFT HAND G22 SALINE LOCKED, PATENT AND INTACT. DUE MEDS GIVEN. SAFETY MEASURES IN PLACED. CALL LIGHT WITHIN REACH. BED ON LOWEST LOCKED POSITION, SIDE RAILS UP X2. WILL ENDORSE TO NEXT SHIFT FOR ANNA.
--- NOTE | 2022-07-26 19:05 | NUR ---
RN NOTES: RECEIVED ASLEEP ON BED,AWAKE WHEN RN CAME,ORIENTED TO UNIT AND STAFF, REPOSITIONED, KEPT OF SEMI FOWLERS POSITION,ASPIRATION PRECAUTION OBSERVED, ON TELE MONITOR SR-83, NO SIGN OF PAIN OR DISCOMFORT AT THIS TIME,A/O 2-3,DIVEHI SPEAKING,ABLE TO COMMUNICATE NEEDS, , CONTINENT B/B WITH BRP, USES BED SIDE COMMODE WITH ASSIST, KEPT ON CLOSE WATCH, ORIENTED TO UNIT AND STAFF, IV CANNULA ON LH G#20,NO IVF, PER ENDORSEMENT DOPPLER FOR DVT ON BLE WAS CANCELLED,HOLD HEPARIN PLATELET-58, SAFETY PRECAUTION OBSERVED, KEPT CALL LIGHT WITHIN EASY REACH, BED LOW AND LOCKED. -UPON ENDORSEMENT SON WAS PRESENT HE VISITED HIS MOTHER GIVEN UPDATES BY MORNING SHIFT RN, STILL PENDING FOR DISCHARGE SNF VS ARU.
[2022-07-26 20:00] VITALS: BP 127/49
--- NOTE | 2022-07-26 21:30 | NUR ---
PLACED PT ON NOC CPAP 14 PER MD'S ORDER. FIO2 35% . NO RESPIRATORY OR SOB NOTED AT THIS TIME. CPAP MACHINE PLUGGED INTO RED OUTLET . ALARMS ON AND AUDIBLE.. WILL CONTINUE TO MONITOR T/O SHIFT.
--- NOTE | 2022-07-26 23:14 | NUR ---
RN NOTES: 2199 BLOOD SUGAR 126, NO INSULIN PER SCALE.WILL CONTINUE TO MONITOR FOR ANY SIGN OF HYPER/HYPOGLYCEMIA. Addendum: 07/27/22 at 0129 by DESIRE WHITE RN added notes: 2129-STARTED ON CPAP-14 BY RT.
[2022-07-27] VITALS: BP 117/78
--- NOTE | 2022-07-27 01:29 | NUR ---
RN NOTES: TURNING AND REPOSITIONING DONE, ON CPAP-14. Addendum: 07/27/22 at 0408 by DESIRE WHITE RN ADDED NOTES: MORE COMFORTABLE ABLE TO SLEEP AND REST WELL. CHECK AT FREQUENT INTERVALS.
[2022-07-27] MEDS: IPRATROPIUM NEB FS 0.5 MG/2.5 ML AMPUL.NEB NEB SCH ×4 (01:49→19:36)
[2022-07-27 04:00] VITALS: BP 132/97
--- NOTE | 2022-07-27 05:26 | NUR ---
TAKEN OFF BIPAP AT THIS TIME AND PLACED PT ON 2L NC. NO RESPIRATORY OR SOB NOTED.
[2022-07-27 06:26] LABS: CALCIUM, SERUM 8.5 mg/dL (8.5-10.1); CREATININE 1.1 mg/dL (0.6-1.3); POTASSIUM 5.3 mmol/L (3.5-5.1)
[2022-07-27 07:00] VITALS: BP_SYST 111; BP_SYST 133; BP_DIAS 111; BP_DIAS 133
--- NOTE | 2022-07-27 07:38 | NUR ---
IMMIGRATION SERVICES OFFICER OPENING NOTES RECEIVED PATIENT IN BED , AWAKE AND A/O X3. ON O2 AT 3LPM VIA NASAL CANNULA TOLERATING WELL. NO SOB NOTED. NOT IN DISTRESS. WITH NO COMPLAINTS OF PAIN AT THIS TIME. ON TELE MONITOR CURRENTLY READING SINUS RHYTHM WITH 70-80 's. PATIENT NEEDS ASSIST GOING TO THE BEDSIDE COMMODE. WITH IV ACCESS AT THE LEFT HAND G22 SALINE LOCKED, PATENT AND INTACT. SAFETY MEASURES IN PLACED. CALL LIGHT WITHIN REACH. BED ON LOWEST LOCKED POSITION, SIDE RAILS UP X2. WILL CONTINUE TO MONITOR.
[2022-07-27] MEDS: BLOOD SUGAR DIAGNOSTIC 1 EACH STRIP IN SCH ×4 (07:43→22:17)
[2022-07-27] MEDS: PANTOPRAZOLE 40 MG TABLET.DR PO SCH (07:49)
--- NOTE | 2022-07-27 07:54 | NUR ---
RN NOTES: AWAKE IN BED, ASSISTED TO USE BED SIDE COMMODE, SHE WAS ABLE TO SLEEP WITH C-PAP LAST NIGHT NOW ON O2 INHALATION AT 3L/MIN, ACTIVITY,TOLERATED NO SOB AFTER TOILETTED, SHE EAT HER GRAMH AND JUICE, ON TELE MONITOR SR-85, ENDORSED FOR CONTINUITY OF CARE.
[2022-07-27] MEDS: AMLODIPINE BESYLATE 10 MG TABLET PO SCH (09:06)
[2022-07-27] MEDS: GLIMEPIRIDE 4 MG TABLET PO SCH ×2 (09:06→16:15)
[2022-07-27] MEDS: CARVEDILOL 12.5 MG TABLET PO SCH ×2 (09:07→16:15)
[2022-07-27 09:20] LABS: ALBUMIN 2.2 g/dL (3.4-5.0); BILIRUBIN,TOTAL 1.6 mg/dL (0.2-1.0); CALCIUM, SERUM 8.4 mg/dL (8.5-10.1); CREATININE 1.1 mg/dL (0.6-1.3); POTASSIUM 5.1 mmol/L (3.5-5.1); TOTAL PROTEIN, SERUM 5.6 g/dL (6.4-8.2)
[2022-07-27] MEDS: INSULIN REGULAR, HUMAN 100 UNIT/ML 3 ML VIAL SQ PRN ×2 (11:50→17:46)
[2022-07-27 13:00] VITALS: BP 111/56
[2022-07-27 16:52] VITALS: BP 147/95
--- NOTE | 2022-07-27 18:51 | NUR ---
BUGGY DRIVER CLOSING NOTES PATIENT IN BED , AWAKE AND A/O X3. JONATHON SPEAKING ON O2 AT 3LPM VIA NASAL CANNULA TOLERATING WELL. NO SOB NOTED. NOT IN DISTRESS. WITH NO COMPLAINTS OF PAIN AT THIS TIME. ON TELE MONITOR CURRENTLY READING SINUS RHYTHM WITH 70-80 's. ALL DUE MEDS GIVEN ORDERED , ASSISTED TO THE BATHROOM WITH USING FWW AND ASSISTED GOING TO THE BEDSIDE COMMODE. WITH IV ACCESS AT THE LEFT HAND G22 SALINE LOCKED, PATENT AND INTACT. SAFETY MEASURES IN PLACED. CALL LIGHT WITHIN REACH. BED ON LOWEST LOCKED POSITION, SIDE RAILS UP X2. ENDORSED TO NEXT SHIFT
--- NOTE | 2022-07-27 19:50 | NUR ---
PHYSICAL MEDICINE TEACHER OPENING NOTES RECEIVED PATIENT IN BED, A/O X 3 LAO SPEAKING. ABLE TO UNDER STAND SIMPLE MALTESE. NO S/S OF CHEST PAIN , SHORTNESS OF BREATH OR ANY DISCOMFORT AT THIS TIME. HOOKED TO OXYGEN VIA NASAL CANNULA AT 3LPM SATURATING WELL. ATTACHED TO TELE MONITORING DEVICE WITH READING OF SINUS AT 74 BPM. PATIENT IS ON FULL CODE STATUS. WITH IV ACCESS AT LEFT HAND G#22 PATENT AND INTACT. NOTED BLE KEPT LOWER EXTREMITIES ELEVATED. PATIENT AMBULATE WITH OXYGEN AND MAXIMUM ASSISTANCE. KEPT BED ON LOWER LOCKED POSITION. KEPT SIDE RAILS UP X 3 ALL THE TIME. PUT BED ALARM ON. KEPT CALL LIGHT WITHIN AT REACH. WILL CONTINUE TO MONITOR.
[2022-07-27 20:00] VITALS: BP 122/52
--- NOTE | 2022-07-27 22:00 | NUR ---
RN ACCU CHECK NOTES PATIENT HAD 47MG/DL BLOOD SUGAR. PATIENT IS AWAKE AND ABLE TO RESPONSE ON CPAP. D50 50ML GIVEN THRU IV.WILL REASSESS BLOOD SUGAR TEST AFTER 30 MINUTES WILL CONTINUE TO MONITOR
--- NOTE | 2022-07-27 22:30 | NUR ---
RN ACCU CHECK NOTES REASSESSED PATIENT BLOOD SUGAR WITH RESULTS OF 141MG/DL PATIENT IS AWAKE WITH CPAP. WILL CONTINUE TO MONITOR
[2022-07-28] VITALS (7 sets, daily range): BP systolic 126–152; BP diastolic 53–80
[2022-07-28] MEDS: IPRATROPIUM NEB FS 0.5 MG/2.5 ML AMPUL.NEB NEB SCH ×4 (01:16→19:57)
[2022-07-28] MEDS: BLOOD SUGAR DIAGNOSTIC 1 EACH STRIP IN SCH ×4 (06:15→21:31)
--- NOTE | 2022-07-28 06:24 | NUR ---
VASCULAR TECH CLOSING NOTES PATIENT IN BED, ON MODERATE HIGH BACK REST POSITION A/O X 3 SPANISH SPEAKING. AMBULATE WITH ASSISTANCE HOOKED TO OXYGEN VIA NASAL CANNULA AT 4 LPM SATURATING AT 95%. CONTINENT WITH BRP. NO S/S OF PAIN OR DISCOMFORT AT THIS TIME. WITH IV ACCESS AT LEFT HAND #22G SL. PATENT AND INTACT. ABLE TO MAINTAINED CPAP AT NIGHT. ON BLOOD SUGAR MONITORING. ALL DUE MEDICATIONS GIVEN ALL NEEDS ATTENDED.SAFETY MEASURES MAINTAINED. KEPT BED ON LOWER LOCKED POSITION, KEPT SIDE RAILS UP X 3 ALL THE TIME. KEPT PATIENT WARM AND COMFORTABLE.WILL ENDORSED TO AM SHIFT FOR ANNA.
--- NOTE | 2022-07-28 07:20 | NUR ---
VP PROJECT OPENING NOTES RECEIVED PATIENT IN BED ASLEEP BUT AROUSABLE , AWAKE AND A/O X3. ON O2 AT 3LPM VIA NASAL CANNULA TOLERATING WELL. NO SOB NOTED. NOT IN DISTRESS. WITH NO COMPLAINTS OF PAIN AT THIS TIME. ON TELE MONITOR CURRENTLY READING SINUS RHYTHM WITH 85 . PATIENT NEEDS ASSIST GOING TO THE BEDSIDE COMMODE. WITH IV ACCESS AT THE LEFT HAND G22 SALINE LOCKED, PATENT AND INTACT. SAFETY MEASURES IN PLACED. CALL LIGHT WITHIN REACH. BED ON LOWEST LOCKED POSITION, SIDE RAILS UP X2. WILL CONTINUE TO MONITOR.
[2022-07-28 07:21] LABS: BASOPHILS % (AUTO) 0.2 % (0.0-2.0); EOSINOPHILS % (AUTO) 2.4 % (0.0-6.0); HEMATOCRIT 30 % (33-45); HEMOGLOBIN 9.7 g/dL (11.5-14.8); LYMPHOCYTES # (AUTO) 0.8 K/uL (0.8-4.8); LYMPHOCYTES % (AUTO) 22.1 % (20.0-44.0); MEAN CORPUSCULAR HGB CONC 32 g/dl (31.0-36.0); MEAN CORPUSCULAR VOLUME 90 fL (82-100); MONOCYTES # (AUTO) 0.4 K/uL (0.1-1.30); MONOCYTES % (AUTO) 10.4 % (2.0-12.0); NEUTROPHILS # (AUTO) 2.4 K/uL (1.8-8.9); NEUTROPHILS % (AUTO) 64.9 % (43.0-81.0); RED BLOOD CELL COUNT(AUTO) 3.38 MIL/uL (4.0-5.2); WHITE BLOOD COUNT (AUTO) 3.7 K/uL (4.3-11.0)
[2022-07-28 07:24] LABS: PLATELET COUNT (AUTO) 49 K/uL (150-450)
[2022-07-28 07:31] LABS: ALBUMIN 2.2 g/dL (3.4-5.0); BILIRUBIN,TOTAL 1.6 mg/dL (0.2-1.0); CALCIUM, SERUM 8.8 mg/dL (8.5-10.1); PHOSPHORUS 4.6 mg/dL (2.5-4.9); POTASSIUM 5.4 mmol/L (3.5-5.1); TOTAL PROTEIN, SERUM 5.7 g/dL (6.4-8.2)
[2022-07-28] MEDS: PANTOPRAZOLE 40 MG TABLET.DR PO SCH (07:59)
[2022-07-28] MEDS: AMLODIPINE BESYLATE 10 MG TABLET PO SCH (09:21)
[2022-07-28] MEDS: GLIMEPIRIDE 4 MG TABLET PO SCH ×2 (09:22→16:12)
[2022-07-28] MEDS: CARVEDILOL 12.5 MG TABLET PO SCH ×2 (09:22→16:12)
[2022-07-28] MEDS ORDERED: SODIUM POLYSTYRENE SULF. PWD 15 GM UDC PO SCH (11:00)
[2022-07-28] MEDS: INSULIN REGULAR, HUMAN 100 UNIT/ML 3 ML VIAL SQ PRN ×3 (12:44→21:32)
[2022-07-28 18:18] LABS: CALCIUM, SERUM 8.9 mg/dL (8.5-10.1); POTASSIUM 4.5 mmol/L (3.5-5.1)
--- NOTE | 2022-07-28 18:41 | NUR ---
DAIRY FEED WORKER CLOSING NOTES PATIENT IN BED , AWAKE AND A/O X3. JONATHON SPEAKING ON O2 AT 3LPM VIA NASAL CANNULA TOLERATING WELL. NO SOB NOTED. NOT IN DISTRESS. WITH NO COMPLAINTS OF PAIN AT THIS TIME. ON TELE MONITOR CURRENTLY READING SINUS RHYTHM WITH 80 'S . ALL DUE MEDS GIVEN ORDERED , ASSISTED TO THE BATHROOM WITH USING FWW AND ASSISTED GOING TO THE BEDSIDE COMMODE. NOTED WITH K OF 5.4 AND WITH ORDER OF KAYEXALATE AND PATIENT ONLY TOOK THE 60 ML AND REFUSED THE 60 ML , WITH IV ACCESS AT THE LEFT HAND G22 SALINE LOCKED, PATENT AND INTACT. SAFETY MEASURES IN PLACED. CALL LIGHT WITHIN REACH. BED ON LOWEST LOCKED POSITION, SIDE RAILS UP X2. ENDORSED TO NEXT SHIFT
--- NOTE | 2022-07-28 19:00 | NUR ---
RN OPENING NOTES PT IS AWAKE, A/O X 3, CROATIAN SPEAKING BUT ABLE TO UNDERSTAND SIMPLE ICELANDIC. PT IS ABLE TO MAKE NEEDS KNOWN. PT ON 02 INHALATION VIA NASAL CANNULA @2LPM, TOLERATING WELL @ THIS TIME. PT IV ACCESS PRESENT ON LEFT HAND #22G, PATENT, INTACT, FLUSHES WELL WITH NO S & SX OF INFILTRATION @ SITE NOTED. PT HAS A STRAPPING MACHINE OPERATOR IN PLACE WITH A CURRENT READING OF SR, HR OF 87 BPM. SAFETY MEASURES IN PLACE WITH BED AT ITS LOWEST & LOCKED POSITION, SIDE RAILS UP X 2, BEDSIDE TABLE & CALL LIGHT IS EASY REACH. BED ALARM IS ON. WILL CONTINUE TO MONITOR PT ACCORDINGLY.
--- NOTE | 2022-07-28 21:33 | NUR ---
INSULIN REGULAR (HUMULIN R / NOVOLIN R) HELD D/T PT BLOOD GLUCOSE OF 101.
--- NOTE | 2022-07-28 21:58 | NUR ---
PHOTO TAKEN OF THE PATIENTS BRUISE ON THE RIGHT UPPER ARM. FILED ON THE PT CHART.
[2022-07-29 01:01] VITALS: BP 167/60
[2022-07-29] MEDS: IPRATROPIUM NEB FS 0.5 MG/2.5 ML AMPUL.NEB NEB SCH ×4 (01:52→20:24)
--- NOTE | 2022-07-29 01:57 | NUR ---
RT PATIENT REMOVED CPAP MASK AT THIS TIME. PT DOES NOT WANT TO BE PLACED BACK ON CPAP. PT PLACED ON NC 2LPM O2.
[2022-07-29 04:59] VITALS: BP 114/66
[2022-07-29 06:19] LABS: BASOPHILS % (AUTO) 0.3 % (0.0-2.0); EOSINOPHILS % (AUTO) 2.2 % (0.0-6.0); HEMATOCRIT 30 % (33-45); HEMOGLOBIN 9.6 g/dL (11.5-14.8); LYMPHOCYTES # (AUTO) 1.6 K/uL (0.8-4.8); LYMPHOCYTES % (AUTO) 19.1 % (20.0-44.0); MEAN CORPUSCULAR HGB CONC 32 g/dl (31.0-36.0); MEAN CORPUSCULAR VOLUME 90 fL (82-100); MONOCYTES # (AUTO) 0.8 K/uL (0.1-1.30); MONOCYTES % (AUTO) 9.1 % (2.0-12.0); NEUTROPHILS # (AUTO) 5.8 K/uL (1.8-8.9); NEUTROPHILS % (AUTO) 69.3 % (43.0-81.0); PLATELET COUNT (AUTO) 60 K/uL (150-450); RED BLOOD CELL COUNT(AUTO) 3.32 MIL/uL (4.0-5.2); WHITE BLOOD COUNT (AUTO) 8.4 K/uL (4.3-11.0)
--- NOTE | 2022-07-29 06:26 | NUR ---
RN CLOSING NOTES PT IS AWAKE & RESTING COMFORTABLY IN BED. RESPONSIVE AND FOLLOWS VERBAL COMMAND. A/O X 3. NO S & SX OF RESPIRATORY DISTRESS. PT ON O2 INHALATION VIA NASAL CANNULA @3LPM, TOLERATING WELL, BREATHING EVEN AND UNLABORED @ THIS TIME. PT IV ACCESS PRESENT ON LEFT HAND #22G, PATENT, INTACT, FLUSHES WELL WITH NO S & SX OF INFILTRATION @ SITE NOTED. PT HAS A RV BODY MECHANIC IN PLACE WITH A CURRENT READING OF SR, HR 89 BPM. MEDICATIONS ADMINISTERED ACCORDINGLY PER MD'S ORDER. SAFETY MEASURES IN PLACE WITH BED AT ITS LOWEST & LOCKED POSITION, SIDE RAILS UP X 2, BEDISDE TABLE & CALL LIGHT IS EASY REACH. BED ALARM IS ON. WILL ENDORSE TO THE NEXT SHIFT FOR CONTINUITY OF CARE.
[2022-07-29] MEDS: BLOOD SUGAR DIAGNOSTIC 1 EACH STRIP IN SCH ×4 (06:33→22:00)
[2022-07-29] MEDS: INSULIN REGULAR, HUMAN 100 UNIT/ML 3 ML VIAL SQ PRN ×4 (06:34→23:29)
--- NOTE | 2022-07-29 06:34 | NUR ---
INSULIN REGULAR HELD D/T BLOOD GLUCOSE OF 91.
[2022-07-29 06:38] LABS: CALCIUM, SERUM 8.8 mg/dL (8.5-10.1); POTASSIUM 4.3 mmol/L (3.5-5.1)
[2022-07-29] MEDS: PANTOPRAZOLE 40 MG TABLET.DR PO SCH (07:12)
--- NOTE | 2022-07-29 07:22 | NUR ---
TABLEAU ADMINISTRATOR OPENING NOTES RECEIVED PT IN BED AWAKE, A/O X3. NIGERIEN SPEAKING. ABLE TO MAKE NEEDS KNOWN, DENIES PAIN OR ANY DISCOMFORTS AT THIS TIME. ON SUPPLEMENTAL 02 VIA N/C @ 3LPM, TOLERATING WELL, BREATHING EVEN AND UNLABORED. ON TELE-MONITOR WITH CURRENT READING OF NSR, HR 90 BPM AT THIS TIME, NO C/O CARDIAC DISTRESS VOICED. IV ACCESS LEFT HAND #22G SL, INTACT, PATENT AND FLUSHES WELL. SAFETY MEASURES IN PLACE: BED IN LOWEST LOCKED POSITION, HOB ELEVATED, SIDE-RAILS UP X2, CALL LIGHT AND TRAY TABLE WITHIN EASY REACH OF PT. WILL CONTINUE TO MONITOR PT ACCORDINGLY.
[2022-07-29 08:11] VITALS: BP 158/63
[2022-07-29] MEDS: GLIMEPIRIDE 4 MG TABLET PO SCH ×2 (08:40→17:16)
[2022-07-29] MEDS: CARVEDILOL 12.5 MG TABLET PO SCH ×2 (08:40→17:00)
[2022-07-29] MEDS: AMLODIPINE BESYLATE 10 MG TABLET PO SCH (08:40)
[2022-07-29] MEDS: hydrALAZINE HCL 50 MG TABLET PO SCH ×3 (08:42→17:00)
[2022-07-29] MEDS ORDERED: SODIUM POLYSTYRENE SULF. PWD 15 GM UDC PO PRN (09:00)
[2022-07-29] MEDS: NITROGLYCERIN 30 GM TUBE TP SCH ×2 (10:28→21:18)
[2022-07-29] MEDS: ONDANSETRON HCL/PF 4 MG/2 ML VIAL IVP PRN (11:39)
--- NOTE | 2022-07-29 11:41 | NUR ---
RN NOTES PT VERBALIZED THAT SHE'S NAUSEATED. PRN ZOFRAN 4MG/2ML IVP ADMINISTERED AT 1139. WILL CONTINUE TO MONITOR AND REASSESS PT.
[2022-07-29 11:49] VITALS: BP 120/62
[2022-07-29] MEDS: ACETAMINOPHEN 325 MG TABLET PO PRN (12:07)
--- NOTE | 2022-07-29 12:10 | NUR ---
RN NOTES PT C/O OF MILD GENERALIZED PAIN AND REQUESTED FOR PAIN MEDICATION. PRN TYLENOL 650MG PO GIVEN AT 1207.
--- NOTE | 2022-07-29 12:52 | NUR ---
RN NOTES PATIENT PICKED-UP VIA WHEELCHAIR BY L[facility] MALONE FOR CT OF CHEST W/O CONTRAST.
--- NOTE | 2022-07-29 14:33 | NUR ---
RN NOTES Informed Dr Kelly of the results of CT of chest w/o contrast with impressions of Pulmonary edema with large bilateral pleural effusions and bibasilar atelectasis. He stated that we'll wait for Dr Majano recommendation. Results of CT also forwarded to Dr Majano, awaiting for any recommendation or order.
[2022-07-29 16:00] VITALS: BP 116/54
[2022-07-29] MEDS ORDERED: IV D5W 1,000 ML IV ONE (18:30)
--- NOTE | 2022-07-29 18:42 | NUR ---
PROFESSOR OF HISTORY CLOSING NOTES PT IN BED AWAKE AT THIS TIME. HOB ELEVATED. A/O X3. KHMER SPEAKING. ON SUPPLEMENTAL 02 VIA N/C @ 3LPM, TOLERATING WELL, BREATHING EVEN AND UNLABORED AT THIS TIME. ON TELE-MONITOR WITH CURRENT READING OF NSR, HR 76 BPM, NO C/O CARDIAC DISTRESS VOICED. IV ACCESS ON LEFT HAND #22G INTACT, PATENT AND FLUSHES WELL. PT TURNED AND REPOSITIONED IN BED PRN. ALL NEEDS AND CARE PROVIDED WELL. SAFETY MEASURES KEPT IN PLACE: BED IN LOWEST LOCKED POSITION, HOB ELEVATED, SIDE-RAILS UP X2, CALL LIGHT AND TRAY TABLE WITHIN EASY REACH OF PT. WILL ENDORSE ANNA TO NEXT SHIFT NURSE
[2022-07-29] MEDS ORDERED: IV D5W 1,000 ML IV PRN (19:00)
--- NOTE | 2022-07-29 19:30 | NUR ---
BUS PERSON OPENING NOTES RECEIVED PT IN BED AWAKE AT THIS TIME. HOB ELEVATED. A/O X3. ANDORRAN SPEAKING. ON SUPPLEMENTAL 02 VIA N/C @ 3LPM, BREATHING EVEN AND UNLABORED AT THIS TIME, TOLERATING WELL. ON TELE-MONITOR WITH CURRENT READING OF SR, HR 76 BPM, NO C/O CARDIAC DISTRESS VERBALIZED AT THIS TIME. IV ACCESS ON LEFT HAND #22G INTACT, PATENT AND FLUSHES WELL. SAFETY MEASURES KEPT IN PLACE: BED IN LOWEST LOCKED POSITION, HOB ELEVATED, SIDE-RAILS UP X2, CALL LIGHT AND TRAY TABLE WITHIN EASY REACH OF PT. WILL CONTINUE WITH THE PLAN OF CARE.
[2022-07-29 20:00] VITALS: BP 113/53
[2022-07-30] VITALS (8 sets, daily range): BP systolic 104–137; BP diastolic 38–86
[2022-07-30] MEDS: IPRATROPIUM NEB FS 0.5 MG/2.5 ML AMPUL.NEB NEB SCH ×4 (02:25→19:54)
[2022-07-30 06:12] LABS: BASOPHILS % (AUTO) 0.3 % (0.0-2.0); EOSINOPHILS % (AUTO) 4.6 % (0.0-6.0); HEMATOCRIT 27 % (33-45); HEMOGLOBIN 8.8 g/dL (11.5-14.8); LYMPHOCYTES # (AUTO) 1.4 K/uL (0.8-4.8); LYMPHOCYTES % (AUTO) 23.6 % (20.0-44.0); MEAN CORPUSCULAR HGB CONC 32 g/dl (31.0-36.0); MEAN CORPUSCULAR VOLUME 89 fL (82-100); MONOCYTES # (AUTO) 0.6 K/uL (0.1-1.30); MONOCYTES % (AUTO) 10.6 % (2.0-12.0); NEUTROPHILS # (AUTO) 3.7 K/uL (1.8-8.9); NEUTROPHILS % (AUTO) 60.9 % (43.0-81.0); PLATELET COUNT (AUTO) 57 K/uL (150-450); RED BLOOD CELL COUNT(AUTO) 3.03 MIL/uL (4.0-5.2); WHITE BLOOD COUNT (AUTO) 6.1 K/uL (4.3-11.0)
[2022-07-30 06:24] LABS: CALCIUM, SERUM 8.3 mg/dL (8.5-10.1); CARBON DIOXIDE 33 mmol/L (21-32); CHLORIDE 108 mmol/L (98-107); CREATININE 1.4 mg/dL (0.6-1.3); GLUCOSE 88 mg/dL (74-106); MAGNESIUM 1.9 mg/dL (1.8-2.4); PHOSPHORUS 4.2 mg/dL (2.5-4.9); POTASSIUM 4.2 mmol/L (3.5-5.1); SODIUM SERUM 143 mmol/L (136-145); UREA NITROGEN, BLOOD 50 mg/dL (7-18)
--- NOTE | 2022-07-30 07:50 | NUR ---
RN OPENING NOTE PATIENT AWAKE IN BED RESTING, A/O X4. NO S/S OF PAIN NOTED AT THIS TIME. ON 3L OXYGEN VIA NC, BREATHING EVEN UNLABORED, NO DISTRESS OR SHORTNESS OF BREATH NOTED. IV ACCESS L HAND #22G, INTACT, PATENT AND FLUSHING WELL. PATIENT WITH EXTERNAL STEAMER OPERATOR WITH CURRENT READING OF SR AND HR OF 71, NO CARDIAC DISTRESS NOTED. FALL AND SAFETY MEASURES IN PLACE, BED ALARM ON, BED IN LOW AND LOCK POSITION, CALL LIGHT AND TABLE WITHIN EASY REACH, SIDE RAILS UP X2. WILL CONTINUE TO MONITOR.
[2022-07-30] MEDS: GLIMEPIRIDE 4 MG TABLET PO SCH ×2 (08:12→17:26)
[2022-07-30] MEDS: PANTOPRAZOLE 40 MG TABLET.DR PO SCH (08:12)
[2022-07-30] MEDS: hydrALAZINE HCL 50 MG TABLET PO SCH ×3 (08:13→17:00)
[2022-07-30] MEDS: CARVEDILOL 12.5 MG TABLET PO SCH ×2 (08:13→17:00)
[2022-07-30] MEDS: NITROGLYCERIN 30 GM TUBE TP SCH ×2 (08:14→20:31)
[2022-07-30] MEDS: BLOOD SUGAR DIAGNOSTIC 1 EACH STRIP IN SCH ×4 (08:22→22:32)
[2022-07-30 11:43] LABS: BAND % (MANUAL) 2 % (0.0-5.0); EOSINOPHILS % (MANUAL) 3 % (0-4); LYMPHOCYTES % (MANUAL) 20 % (16-48); MONOCYTES % (MANUAL) 5 % (0-11.0); NEUTROPHILS % (MANUAL) 70 (42-76)
[2022-07-30] MEDS: INSULIN REGULAR, HUMAN 100 UNIT/ML 3 ML VIAL SQ PRN ×2 (13:13→17:28)
--- NOTE | 2022-07-30 18:50 | NUR ---
RN CLOSING NOTE PATIENT AWAKE IN BED RESTING, A/O X4. NO S/S OF PAIN NOTED AT THIS TIME. ON 3L OXYGEN VIA NC, BREATHING EVEN UNLABORED, NO DISTRESS OR SHORTNESS OF BREATH NOTED. IV ACCESS L HAND #22G, INTACT, PATENT AND FLUSHING WELL. PATIENT WITH EXTERNAL DECK STEWARD WITH CURRENT READING OF SR AND HR OF 74, NO CARDIAC DISTRESS NOTED. SCHEDULED MEDICATIONS ADMINISTERED. SKIN CARE IMPLEMENTED. PATIENT WAS TURNED AND REPOSITIONED PER PROTOCOL. FALL AND SAFETY MEASURES IN PLACE, BED ALARM ON, BED IN LOW AND LOCK POSITION, CALL LIGHT AND TABLE WITHIN EASY REACH, SIDE RAILS UP X2. ALL NEEDS ATTENDED AND ANTICIPATED. WILL ENDORSE TO PHYSICIAN CREDENTIALING SPECIALIST NURSE.
--- NOTE | 2022-07-30 19:30 | NUR ---
WAREHOUSER OPENING NOTES RECEIVED PATIENT AWAKE AND SITTING IN BED. PATIENT IS A/O TIMES 3. UPPER SORBIAN SPEAKER. SON AT BED SIDE.NO PAIN NOTED. ON 02 INHALATION VIA NASAL CANNULA AT 3L/MIN . 02 SAT NOTED 98%. ABLE TO MAKE NEEDS KNOWN. ALL NEEDS ATTENDED. ON TELE MONITOR READING SR 77. IV ACCESS AT THE LEFT HAND G # 22 INTACT AND SL.OVERALL SKIN INTACT. BRUISE NOTED ON THE RIGHT UPPER ARM. ALL SAFETY MEASURES IN PLACE. BED LOCKED IN THE LOWEST POSITION. CALL LIGHT AND TABLE IN EASY REACH . SIDE RAILS UP TIMES 2. WILL CONTINUE TO MONITOR CLOSELY.
[2022-07-30] MEDS: ACETAMINOPHEN 325 MG TABLET PO PRN (20:30)
[2022-07-30] MEDS: ONDANSETRON HCL/PF 4 MG/2 ML VIAL IVP PRN (20:59)
--- NOTE | 2022-07-30 22:00 | NUR ---
RN NOTES BLOOD SUGAR CHECKED NOTED 52. PATIENT ALERT. GAVE ORANGE JUICE . ABLE TO CONSUME THE ORANGE JUICE. RECHECKED BLOOD SUGAR NOTED 94.
[2022-07-31] VITALS: BP 101/47
[2022-07-31] MEDS: IPRATROPIUM NEB FS 0.5 MG/2.5 ML AMPUL.NEB NEB SCH ×4 (01:50→19:30)
[2022-07-31 04:00] VITALS: BP 123/73
[2022-07-31] MEDS: BLOOD SUGAR DIAGNOSTIC 1 EACH STRIP IN SCH ×3 (06:41→16:39)
[2022-07-31 07:00] VITALS: BP 154/54
--- NOTE | 2022-07-31 07:45 | NUR ---
CHEF SAUCIER CLOSING NOTES PATIENT AWAKE AND SITTING IN BED. PATIENT IS A/O TIMES 3. DANISH SPEAKER. SON AT BED SIDE.NO PAIN NOTED. ON 02 INHALATION VIA NASAL CANNULA AT 3L/MIN . 02 SAT NOTED 98%. ABLE TO MAKE NEEDS KNOWN. ALL NEEDS ATTENDED. ON TELE MONITOR READING SR 79. IV ACCESS AT THE LEFT HAND G # 22 INTACT AND SL.OVERALL SKIN INTACT. BRUISE NOTED ON THE RIGHT UPPER ARM. ALL DUE MEDS GIVEN ORDERED.ALL SAFETY MEASURES IN PLACE. BED LOCKED IN THE LOWEST POSITION. CALL LIGHT AND TABLE IN EASY REACH . SIDE RAILS UP TIMES 2. WILL ENDORSE FOR ANNA TO INCOMING SHIFT NURSE.
[2022-07-31 08:11] LABS: CARBON DIOXIDE 22 mmol/L (21-32); CHLORIDE 106 mmol/L (98-107); POTASSIUM 4.9 mmol/L (3.5-5.1); SODIUM SERUM 138 mmol/L (136-145)
[2022-07-31 08:13] LABS: CALCIUM, SERUM 8.5 mg/dL (8.5-10.1); CREATININE 1.9 mg/dL (0.6-1.3); GLUCOSE 86 mg/dL (74-106); UREA NITROGEN, BLOOD 56 mg/dL (7-18)
--- NOTE | 2022-07-31 08:20 | NUR ---
RN OPENING NOTE PATIENT AWAKE IN BED RESTING, A/O X4. NO S/S OF PAIN NOTED AT THIS TIME. ON 3L OXYGEN VIA NC, BREATHING EVEN UNLABORED, NO DISTRESS OR SHORTNESS OF BREATH NOTED. IV ACCESS L HAND #22G, INTACT, PATENT AND FLUSHING WELL. PATIENT WITH EXTERNAL LICENSED WEIGHER WITH CURRENT READING OF SR AND HR OF 70, NO CARDIAC DISTRESS NOTED. FALL AND SAFETY MEASURES IN PLACE, BED ALARM ON, BED IN LOW AND LOCK POSITION, CALL LIGHT AND TABLE WITHIN EASY REACH, SIDE RAILS UP X2. WILL CONTINUE TO MONITOR.
[2022-07-31] MEDS: CARVEDILOL 12.5 MG TABLET PO SCH ×2 (08:38→16:28)
[2022-07-31] MEDS: hydrALAZINE HCL 50 MG TABLET PO SCH ×3 (08:39→16:27)
[2022-07-31] MEDS: PANTOPRAZOLE 40 MG TABLET.DR PO SCH (08:39)
[2022-07-31] MEDS: GLIMEPIRIDE 4 MG TABLET PO SCH ×2 (08:39→16:27)
[2022-07-31] MEDS: NITROGLYCERIN 30 GM TUBE TP SCH (08:40)
[2022-07-31] MEDS: ACETAMINOPHEN 325 MG TABLET PO PRN (08:47)
--- NOTE | 2022-07-31 11:00 | NUR ---
RN NOTE PATIENT HAVE A BRUISE AND SKIN TEAR ON HER LEFT UPPER ARM. PATIENT REMOVED A BANDAGE HER SELF AND GOT A SKIN TEAR, SKIN CARE WAS PROVIDED AND SKIN TEAR WAS COVER WITHOUT USING TAPE DIRECTLY ON PATIENT SKIN. PICTURE WAS TAKEN. CHARGE NURSE AWARE.
[2022-07-31 12:00] VITALS: BP 101/34
[2022-07-31 16:00] VITALS: BP 116/69
--- NOTE | 2022-07-31 18:42 | NUR ---
RN CLOSING NOTE PATIENT AWAKE IN BED RESTING, A/O X4. NO S/S OF PAIN NOTED AT THIS TIME. ON 3L OXYGEN VIA NC, BREATHING EVEN UNLABORED, NO DISTRESS OR SHORTNESS OF BREATH NOTED. IV ACCESS L HAND #22G, INTACT, PATENT AND FLUSHING WELL. PATIENT WITH EXTERNAL LINUX NETWORK ENGINEER WITH CURRENT READING OF SR AND HR OF 74, NO CARDIAC DISTRESS NOTED. SCHEDULED MEDICATIONS ADMINISTERED. SKIN CARE IMPLEMENTED. PATIENT WAS TURNED AND REPOSITIONED PER PROTOCOL. FALL AND SAFETY MEASURES IN PLACE, BED ALARM ON, BED IN LOW AND LOCK POSITION, CALL LIGHT AND TABLE WITHIN EASY REACH, SIDE RAILS UP X2. ALL NEEDS ATTENDED AND ANTICIPATED. WILL ENDORSE TO SURGICAL INSTRUMENT MECHANIC NURSE.
--- NOTE | 2022-07-31 19:30 | NUR ---
noc rn note received patient in bed, intermittently awake. no s/s of apparent distress on 3lpm of o2 via nc. denies any pain at this time. reading sr on the tele monitor at this time. left hand #22g intact, patent, on saline lock. safety in place-- bed in lowest, locked position, side rails up X2, call light within reach. Patient is for discharge, will cont. with patient's plan for discharge.
--- NOTE | 2022-07-31 19:50 | NUR ---
noc rn note called [facility] [phone] to follow up, per Eitan panel saw operator, trasportation will arrived 5-7 min.
[2022-07-31 20:00] VITALS: BP 138/51
--- NOTE | 2022-07-31 20:40 | NUR ---
DISCHARGE NOTE PATIENT ROLLED DOWN AT AROUND 2025, ACCOMPANIED BY 2 EMT, VIA [facility]. PATIENT IN STABLE CONDITION, A/OX3, READING NSR, TELE MONITOR WAS TAKEN OFF, ID BAND TAKEN OFF, AND IV ACCESS REMOVED. BELONGINGS GIVEN INCLUDING CELLPHONE AND WALLET. ALL PAPER WORKS SIGNED AND DISCHARGE PACKET GIVEN TO EMT. PATIENT'S DAUGHTER HUMERA WAS INFORMED ENDORSED. BLOOD SUGAR 70, V/S TAKEN AND CHARTED. PATIENT GOING TO [facility], ROOM 317. REPORT WAS ALREADY GIVEN BY LIZA LYNN TO REBECCA REYNOLDS @[place]. PATIENT LEFT VIA AM [facility].
== END 2022-08-01 | DRG 280 ==
LOC: ER 13:35 → TELE 17:00
PROVIDERS: ADMIT Nurse Practitioner Acute Care; ATTEND Nurse Practitioner Acute Care
PROC: 5A09357 Assistance with Respiratory Ventilation, Less than 24 Consecutive Hours, Continuous Positive Airway Pressure (ICD-10-PCS; principal; 2022-07-27)
DX: I13.0 Hypertensive heart and chronic kidney disease with heart failure and stage 1 through stage 4 chronic kidney disease, or unspecified chronic kidney disease (principal); I21.A1 Myocardial infarction type 2; I50.33 Acute on chronic diastolic (congestive) heart failure; N17.0 Acute kidney failure with tubular necrosis; J96.01 Acute respiratory failure with hypoxia; Z68.42 Body mass index [BMI] 45.0-49.9, adult; K80.10 Calculus of gallbladder with chronic cholecystitis without obstruction; K86.1 Other chronic pancreatitis; E87.0 Hyperosmolality and hypernatremia; J98.11 Atelectasis; J90 Pleural effusion, not elsewhere classified; Z20.822 Contact with and (suspected) exposure to COVID-19; E11.22 Type 2 diabetes mellitus with diabetic chronic kidney disease; E78.5 Hyperlipidemia, unspecified; E03.9 Hypothyroidism, unspecified; E66.01 Morbid (severe) obesity due to excess calories; F32.A Depression, unspecified; G43.909 Migraine, unspecified, not intractable, without status migrainosus; E11.42 Type 2 diabetes mellitus with diabetic polyneuropathy; M79.2 Neuralgia and neuritis, unspecified; H26.9 Unspecified cataract; I48.91 Unspecified atrial fibrillation; I25.10 Atherosclerotic heart disease of native coronary artery without angina pectoris; I27.20 Pulmonary hypertension, unspecified; K21.9 Gastro-esophageal reflux disease without esophagitis; K59.00 Constipation, unspecified; Z87.19 Personal history of other diseases of the digestive system; K29.70 Gastritis, unspecified, without bleeding; M81.0 Age-related osteoporosis without current pathological fracture; N18.9 Chronic kidney disease, unspecified; Z86.79 Personal history of other diseases of the circulatory system; G89.29 Other chronic pain; F43.10 Post-traumatic stress disorder, unspecified; E53.8 Deficiency of other specified B group vitamins; D50.9 Iron deficiency anemia, unspecified; Z79.84 Long term (current) use of oral hypoglycemic drugs; Z79.899 Other long term (current) drug therapy; E11.65 Type 2 diabetes mellitus with hyperglycemia; G47.33 Obstructive sleep apnea (adult) (pediatric); D69.6 Thrombocytopenia, unspecified; F41.9 Anxiety disorder, unspecified; R60.9 Edema, unspecified; E87.5 Hyperkalemia; I70.0 Atherosclerosis of aorta; Z82.49 Family history of ischemic heart disease and other diseases of the circulatory system; Z82.61 Family history of arthritis; Z84.89 Family history of other specified conditions; Z90.710 Acquired absence of both cervix and uterus; R53.1 Weakness
CPT/HCPCS: 36415; 36600; 71045-TC; 71250-TC; 76770-TC; 80048-TC; 80053-TC; 80061-TC; 80076-TC; 81001; 82803-TC; 82962-TC; 83735-TC; 83880; 84100-TC; 84443-TC; 84484-TC; 85025-TC; 85378-TC; 87081-TC; 93307-TC; 93970-TC; 94762-TC; 94799-TC; 97110-TC; 97112-TC; 97116-TC; 97530-TC; A4223; C9803; G0378; J1815; J1940; J2405; J7070

== ENCOUNTER 2022-08-31 20:54 | Inpatient (IN) | payer MEDICARE, OTHER ==
[~2022-08-31] VITALS: Ht 167.6 cm; Wt 107.0 kg
[~2022-08-31 20:54] MED LIST changes: +AMIT25TA9 PO; +CELE-85 PO; +CETI10TA14 PO; +CLON1PAT TD; -CLON1PAT2 TD; +DAPA10TA PO; +DEXL60CA3 PO; +DILT180T9 PO; +DULA1.5P SQ; +ERGO500093 PO; +ESCI10TA PO; +FLUT1BLS6 INH; +FURO40TA5 PO; +GABA300C PO; -IBUP-1955 PO; -LEVA15HF4 IH; +LINA145C PO; -LORA1TAB PO; +MIRT-91 PO; +MONT10TA22 PO; +POLY15DR40 EACHEYE; +POTA-88 PO; +SACU1TAB4 PO; +SPIR25TA6 PO; -VALS1TAB8 PO
--- NOTE | 2022-08-31 21:01 | NUR ---
BS=90
--- NOTE | 2022-08-31 21:08 | NUR ---
EKG DONE AT BEDSIDE
--- NOTE | 2022-08-31 21:10 | NUR ---
20GA TO LH ESTABLISHED. 18GA TO RH ALREADY ESTABLISHED OSTOMY NURSE.
--- NOTE | 2022-08-31 21:17 | NUR ---
BLOOD WORK, BLOOD CX COLLECTED AND SENT TO LAB
[2022-08-31] MEDS ORDERED: IV 10% DEXTROSE 1,000 ML IV PRN (21:30)
[2022-08-31 21:35] LABS: BASOPHILS % (AUTO) 0.2 % (0.0-2.0); EOSINOPHILS % (AUTO) 1.1 % (0.0-6.0); HEMATOCRIT 34 % (33-45); LYMPHOCYTES # (AUTO) 1.4 K/uL (0.8-4.8); LYMPHOCYTES % (AUTO) 21.1 % (20.0-44.0); MEAN CORPUSCULAR HGB CONC 33 g/dl (31.0-36.0); MEAN CORPUSCULAR VOLUME 91 fL (82-100); MONOCYTES # (AUTO) 0.4 K/uL (0.1-1.30); MONOCYTES % (AUTO) 6.6 % (2.0-12.0); NEUTROPHILS # (AUTO) 4.7 K/uL (1.8-8.9); PLATELET COUNT (AUTO) 54 K/uL (150-450); RED BLOOD CELL COUNT(AUTO) 3.74 MIL/uL (4.0-5.2); WHITE BLOOD COUNT (AUTO) 6.7 K/uL (4.3-11.0)
[2022-08-31 21:36] LABS: BILIRUBIN,URINE NEGATIVE (NEGATIVE); COLOR,URINE YELLOW (YELLOW); LEUKOCYTE ESTERASE ,URINE 3+ (NEGATIVE); NITRITE, URINE POSITIVE (NEGATIVE); PH,URINE 5.5 (5.0-8.0); PROTEIN,URINE 1+ mg/dl (NEGATIVE); UGLUCOSE NEGATIVE (NEGATIVE); UROBILINOGEN,URINE 0.2 EU/dL (0.2)
[2022-08-31 21:49] LABS: CALCIUM, SERUM 8.3 mg/dL (8.5-10.1); CARBON DIOXIDE 22 mmol/L (21-32); CHLORIDE 110 mmol/L (98-107); CREATININE 2.2 mg/dL (0.6-1.3); GLUCOSE 91 mg/dL (74-106); POTASSIUM 5.4 mmol/L (3.5-5.1); SODIUM SERUM 141 mmol/L (136-145)
[2022-08-31 21:51] LABS: UREA NITROGEN, BLOOD 81 mg/dL (7-18)
[2022-08-31 22:02] LABS: ALANINE AMINOTRANSFERASE 36 U/L (12-78); ALBUMIN 2.4 g/dL (3.4-5.0); ALKALINE PHOSPHATASE 183 U/L (46-116); ASPARTATE AMINOTRANSFERASE 44 U/L (15-37); BILIRUBIN,DIRECT 0.4 mg/dL (0.0-0.2); BILIRUBIN,TOTAL 0.8 mg/dL (0.2-1.0); TOTAL PROTEIN, SERUM 6.2 g/dL (6.4-8.2)
[2022-08-31] MEDS ORDERED: NOREPINEPHRINE 4 MG/4 ML AMPUL IV ONE (22:08)
--- NOTE | 2022-08-31 22:10 | NUR ---
BG 56
[2022-08-31] MEDS ORDERED: DEXTROSE 50%-WATER 50 ML DISP.SYRIN ONE (22:11)
[2022-08-31 22:28] LABS: BACTERIA,URINE 3+ /HPF (None Seen); RBC,URINE 51-80 /HPF (0-2); WBC,URINE 51-80 /HPF (0-3)
[2022-08-31] MEDS ORDERED: DEXTROSE 50%-WATER 50 ML DISP.SYRIN IVP ONE (22:30)
[2022-08-31] MEDS ORDERED: NOREPINEPHRINE 8 MG in IV NS 0.9% 242 ML IV PRN ×2 (22:30→23:00)
[2022-08-31 22:31] LABS: EOSINOPHILS % (MANUAL) 2 % (0-4); LYMPHOCYTES % (MANUAL) 17 % (16-48); MONOCYTES % (MANUAL) 9 % (0-11.0); NEUTROPHILS % (MANUAL) 72 (42-76)
[2022-08-31 22:32] LABS: ABG BASE EXCESS -7.1 mmol/L; ABG PCO2 35.7 mmHg (35.0-45.0); ABG PH 7.325 (7.350-7.450); ABG PO2 309.2 mmHg (75.0-100.0); COHb 0.3 % (0.5-1.5); MetHb 0.4 % (0.0-1.5); O2Hb 98.6 % (94.0-97.0); SITE, ABG Right Radial; VENT MODE, BG 15L NRB
[2022-08-31] MEDS ORDERED: ONDANSETRON HCL/PF 4 MG/2 ML VIAL IVP PRN (23:00)
[2022-08-31] MEDS ORDERED: ACETAMINOPHEN 650 MG/SUPP.RECT RC PRN (23:00)
[2022-08-31] MEDS ORDERED: VANCOMYCIN 1 GM in IV D5W 250 ML IV ONE (23:00)
[2022-08-31] MEDS ORDERED: Z GUARD REMEDY 4 OZ OINT TP PRN (23:00)
[2022-08-31] MEDS ORDERED: CEFEPIME 1 GM in IV D5W 50 ML IV ONE (23:00)
[2022-08-31] MEDS ORDERED: CEFEPIME 1 GM VIAL ONE (23:03)
[2022-08-31] MEDS ORDERED: VANCOMYCIN 1 GM VIAL ONE (23:03)
[2022-08-31] MEDS ORDERED: PANTOPRAZOLE 40 MG VIAL ONE (23:13)
[2022-08-31] MEDS: PANTOPRAZOLE 40 MG VIAL IV SCH (23:15)
[2022-08-31] MEDS ORDERED: ALBUTEROL FS 2.5 MG/0.5 ML VIAL.NEB NEB PRN (23:30)
[2022-08-31] MEDS ORDERED: PROPOFOL 100 ML ONE (23:38)
[2022-09-01] VITALS (59 sets, daily range): BP systolic 64–150; BP diastolic 27–93
[2022-09-01] MEDS ORDERED: ONDANSETRON HCL/PF - ER 4 MG/2 ML VIAL IV ONE
[2022-09-01] MEDS: FAMOTIDINE/PF INJ 20 MG/2 ML VIAL IV SCH ×2 (00:20→10:15)
[2022-09-01] MEDS ORDERED: GLYCOPYRROLATE 0.2 MG/ML VIAL ONE (00:23)
[2022-09-01] MEDS ORDERED: GLYCOPYRROLATE 0.2 MG/ML VIAL IV ONE (00:30)
[2022-09-01] MEDS ORDERED: methylPREDNISolone SOD SUCC 125 MG/2ML VIAL IV ONE (00:30)
[2022-09-01] MEDS: BLOOD SUGAR DIAGNOSTIC 1 EACH STRIP IN SCH ×5 (01:00→17:07)
--- NOTE | 2022-09-01 01:25 | NUR ---
Anesthesiologist at bedside for intubation.
--- NOTE | 2022-09-01 01:46 | NUR ---
picc line nurse at bedside
[2022-09-01] MEDS ORDERED: SUCCINYLCHOLINE CHLORIDE 20 MG/ML VIAL IV ONE ×2 (02:00→09:17)
--- NOTE | 2022-09-01 02:10 | NUR ---
report given to Ed rn to continue care.
[2022-09-01 03:29] LABS: ABG BASE EXCESS -9.2 mmol/L; ABG PCO2 37.2 mmHg (35.0-45.0); ABG PH 7.274 (7.350-7.450); ABG PO2 225.1 mmHg (75.0-100.0); COHb 0.1 % (0.5-1.5); MetHb 0.4 % (0.0-1.5); O2Hb 98.9 % (94.0-97.0); PEEP,BG 0 cm H2O; SITE, ABG Right Radial; VENT MODE, BG AC 16 450 60% +0; VT, ABG 450 mL
--- NOTE | 2022-09-01 03:56 | NUR ---
wheeled patient via gurney accompanied by RN, RT, and emt. Ed RN at bedside to assume care.
[2022-09-01] MEDS: PROPOFOL 100 ML IV PRN ×5 (04:22→19:37)
[2022-09-01] MEDS: NOREPINEPHRINE 32 MG in IV NS 0.9% 250 ML IV PRN ×2 (04:26→17:27)
[2022-09-01 05:19] LABS: HEMATOCRIT 36 % (33-45); HEMOGLOBIN 11.2 g/dL (11.5-14.8); LYMPHOCYTES # (AUTO) 0.6 K/uL (0.8-4.8); LYMPHOCYTES % (AUTO) 4.6 % (20.0-44.0); MEAN CORPUSCULAR HGB CONC 32 g/dl (31.0-36.0); MEAN CORPUSCULAR VOLUME 94 fL (82-100); MONOCYTES # (AUTO) 0.4 K/uL (0.1-1.30); MONOCYTES % (AUTO) 2.9 % (2.0-12.0); NEUTROPHILS # (AUTO) 12.2 K/uL (1.8-8.9); NEUTROPHILS % (AUTO) 92.5 % (43.0-81.0); PLATELET COUNT (AUTO) 73 K/uL (150-450); RED BLOOD CELL COUNT(AUTO) 3.81 MIL/uL (4.0-5.2); WHITE BLOOD COUNT (AUTO) 13.2 K/uL (4.3-11.0)
[2022-09-01 05:31] LABS: CALCIUM, SERUM 7.9 mg/dL (8.5-10.1); CARBON DIOXIDE 17 mmol/L (21-32); CHLORIDE 105 mmol/L (98-107); CREATININE 2.4 mg/dL (0.6-1.3); MAGNESIUM 2.3 mg/dL (1.8-2.4); PHOSPHORUS 5.4 mg/dL (2.5-4.9); SODIUM SERUM 133 mmol/L (136-145)
[2022-09-01 05:34] LABS: GLUCOSE 350 mg/dL (74-106)
[2022-09-01 05:36] LABS: POTASSIUM 6.5 mmol/L (3.5-5.1); UREA NITROGEN, BLOOD 82 mg/dL (7-18)
[2022-09-01 05:37] LABS: CHOLESTEROL 139 mg/dL (<200); HDL CHOLESTEROL 41 mg/dL (40-60); LDL 100 mg/dL (0-99); THYROID STIMULATING HORMONE 1.604 uIU/mL (0.358-3.74); TRIGLYCERIDES 56 mg/dL (30-150)
--- NOTE | 2022-09-01 06:05 | NUR ---
ANIMAL CYTOLOGIST PT WAS ADMITTED FROM ER @ 4 A.M. WITH DIAGNOSIS, SEPSIS, SEPTIC SHOCK, MULTIFACTORIAL, UITA, POSSIBLE ASPIRATION PNA. PT IS INTUBATED AFTER MULTIPLE TRAUMATIC ATTEMPTS. VENT. SETTING. AC-16, TV 450. FIO2-60%, PEEP-0. TONGUE IS VERY SWOLLEN & PROTRUDED. PT HAS ALSO RIGHT CHEST TUBE D/T PNEUMOTHORAX AFTER INTUBATION. MODER. AMT. OB BLOODY SECRETION COMES VIA ETT, MOUTH & NOSE. RIGHT UPPER ARM PICC LINE WAS INSERTED. PT REMAINS ON PROPOFOL &LEVOPHED DRIP /TITRATED PER PROTOCOL/.D10 IV WAS D/C PER MD ORDER D/T BS LEVEL WAS 321 @ 5 A.M./F/C DRAINS SUFFICIEN AMT. OF CLEAR YELLOW URINE. VSS, AFEBRILE, SCOPE-SR. WILL CONTINUE CLOSE MONITORING.
--- NOTE | 2022-09-01 08:00 | NUR ---
RN NOTES RECEIVED PATIENT ETT/ VENT SETTING, PATIENT HAS NO ACUTE RESPIRATORY DISTRESS. PATIENT SETTINGS ARE 7.5/23, FIO2-60%, PEEP-0, TV-450. PATIENT TONGUE IS PROTRUDED, BLUISH COLOR, AND BLEEDING. SUCTION, AM CARE DONE, INSERTED NGT. LAB VALUES REVIEWED KCL-6.5 AND GET ORDER . SEEN PATIENT VIA HOSPITALIST. PATIENT SEDATED, ON LEVOPHED 0.2MCG/KG/MIN. CHEST TUBE INTACT, TRIPP DRAINING VIA GRAVITY, BS-326 MG/DL COVERAGE GIVE, SKIN ASSESSMENT DONE, PICTURE TAKEN. KEEP HOB ELEVATED, ASSIST TURN AND REPOSTION Q 2 HR. CALL LIGHT WITHIN TO R3EACH. WILL FOLLOW UP.
[2022-09-01 08:39] LABS: ABG BASE EXCESS -8.4 mmol/L; ABG OXYGEN SATURATION 98.4 % (92.0-98.5); ABG PCO2 29.5 mmHg (35.0-45.0); ABG PH 7.351 (7.350-7.450); ABG PO2 138.4 mmHg (75.0-100.0); AaDO2 184.9 mmHg; COHb 0.3 % (0.5-1.5); MetHb 0.3 % (0.0-1.5); O2Hb 97.8 % (94.0-97.0); SITE, ABG Right Radial
[2022-09-01] MEDS ORDERED: methylPREDNISolone SOD SUCC 40 MG/ML VIAL IV SCH (09:00)
[2022-09-01] MEDS ORDERED: SODIUM POLYSTYRENE SULFONATE 15 G/60 ML BOTTLE PO ONE (09:00)
[2022-09-01] MEDS ORDERED: VANCOMYCIN 500 MG in IV D5W 100 ML IV ONE (09:00)
[2022-09-01] MEDS ORDERED: ETOMIDATE 2 MG/ML VIAL IV ONE ×2 (09:15)
[2022-09-01] MEDS ORDERED: LIDOCAINE 100MG/5ML DISP SYR IV ONE (09:15)
[2022-09-01] MEDS ORDERED: ROCURONIUM BROMIDE 50 MG/5 ML IV ONE ×2 (09:17)
[2022-09-01 09:25] LABS: BAND % (MANUAL) 6 % (0.0-5.0); BASOPHILS % (MANUAL) 0 % (0.0-2.0); EOSINOPHILS % (MANUAL) 0 % (0-4); LYMPHOCYTES % (MANUAL) 6 % (16-48); MONOCYTES % (MANUAL) 4 % (0-11.0); NEUTROPHILS % (MANUAL) 84 (42-76)
[2022-09-01] MEDS ORDERED: INSULIN REGULAR, HUMAN 100 UNIT/ML 10 ML VIAL IV ONE (09:30)
[2022-09-01] MEDS ORDERED: ALBUTEROL FS 2.5 MG/0.5 ML VIAL.NEB NEB ONE (09:30)
[2022-09-01] MEDS ORDERED: DEXTROSE 50%-WATER 50 ML DISP.SYRIN IVP ONE (10:00)
[2022-09-01] MEDS ORDERED: SILD20TA2 PO (10:12)
[2022-09-01] MEDS ORDERED: RIFA550T PO (10:12)
[2022-09-01] MEDS ORDERED: LACT10SO3 PO (10:12)
[2022-09-01] MEDS ORDERED: HYDR-4076 PO (10:12)
[2022-09-01] MEDS ORDERED: PIOG15TA8 PO (10:12)
[2022-09-01] MEDS ORDERED: ONDA-97 PO (10:12)
[2022-09-01] MEDS ORDERED: SACU1TAB4 PO (10:13)
[2022-09-01] MEDS: PANTOPRAZOLE 40 MG VIAL IV SCH (10:15)
[2022-09-01] MEDS ORDERED: IV NS 0.9% 1,000 ML IV PRN (10:30)
[2022-09-01] MEDS ORDERED: CEFEPIME 1 GM in IV D5W 50 ML IV SCH (11:00)
[2022-09-01] MEDS: HYDROCORTISONE SOD SUCCINATE 100 MG/2 ML VIAL IV SCH ×2 (11:08→13:54)
[2022-09-01] MEDS: INSULIN REGULAR, HUMAN 100 UNIT/ML 3 ML VIAL SQ PRN ×3 (11:27→17:18)
[2022-09-01] MEDS ORDERED: DEXTROSE 50%-WATER 50 ML DISP.SYRIN IV PRN (11:30)
--- NOTE | 2022-09-01 13:00 | NUR ---
RN NOTES PER PATIENT DOUGHTERS WAITING OTHER FAMILY MEMBERS TO MAKE FINAL DECISION. PATIENT TALAT FULL CODE, BS- 404, DAILY CARE DONE.
[2022-09-01] MEDS ORDERED: NOREPINEPHRINE 8 MG in IV NS 0.9% 242 ML IV PRN (18:00)
--- NOTE | 2022-09-01 18:55 | NUR ---
RN NOTES PM CARE DONE, DUE MEDICATION ADMINISTERED, BS-311MG/DL COVERAGE GIVEN, INFUSING LEVOPHED 0.2 MCG/KG/MIN, DIPRIVAN 40 ML/HR, NS @100ML/HR. FAMILY NEXT TO THE BED FOR FINAL GOODBYE, AND WAITING FOR HOSPITALIST. FAMILY WILLING TO SPEAK. HOSPITALIST AWARE OF. ENDORSED ONCOMING NURSE ANNA.
--- NOTE | 2022-09-01 19:41 | NUR ---
DIRECTOR STUDENT UNION. INITIAL ASSESSMENT. RECEIVED THE PT REST IN BED. ORALLY INTUBATED. SEDATED WITH PROPOFOL 35MCG/KG/MIN, ETT 7.5CM,LIP 23CMS,AC 16,TV 450,FIO2 60%. NGT INTACT. RT SIDE CHEST TUBE, INTACT. HOB ELEVATED. FC PATENT. IV RT UPPER ARM PICC LINE. LEVOPHED 0.2MCG/KG/MIN, PROPOFOL 35MCG/KG/MIN, IVF NS 100ML/H. WILL CONTINUE TO MONITOR VITALS.
--- NOTE | 2022-09-01 20:18 | NUR ---
ASSOCIATE QUALITY ENGINEER. FAMILY DECIDED TO TERMINAL EXTUBATION. AND COMFORT MEASURE
[2022-09-01] MEDS: MORPHINE SULFATE INJ 4 MG/ML DISP.SYRIN IV PRN ×2 (20:29→21:15)
[2022-09-01] MEDS: LORAZEPAM INJ 2 MG/ML VIAL IV PRN ×2 (20:29→21:14)
--- NOTE | 2022-09-01 20:45 | NUR ---
[employer] WEBSPHERE PORTAL DEVELOPER. [id number], AND ATIVAN 2MGIV GIVEN PER GREG DNP ORDER CHECKER ORDER FOR COMFORT MEASURE.
--- NOTE | 2022-09-01 20:47 | NUR ---
DRY PRESS OPERATOR. ALL MEDICATION STOPPED, FAMILY AT BED SIDE, DAUGHTER DECIDED TO COMFORT MEASURE.
--- NOTE | 2022-09-01 21:11 | NUR ---
[facility]. PT TERMINALLY EXTUBATED AT 2100.
--- NOTE | 2022-09-01 22:11 | NUR ---
ELECTRIC MOTOR TESTER ASSEMBLER. PT IS AT 2135. NOTIFIED [facility] AT 2149. CASE #[id number], SPOKE PERSON IS [id number]
--- NOTE | 2022-09-01 22:29 | NUR ---
[employer]PPORT [facility] # IS [id number]. SPOKE PERSON IS TIM.BODY [facility] RELEASED.
--- NOTE | 2022-09-01 22:44 | NUR ---
BLACKING MACHINE OPERATOR. NOTIFIED [facility].
--- NOTE | 2022-09-01 23:12 | NUR ---
BRYOLOGIST. POST MORTEM CARE GIVEN.WAITING FOR MORTUARY PICC UP
[2022-09-02] MEDS ORDERED: VANCOMYCIN 1.5 GM in IV D5W 500 ML IV SCH ×2
[2022-09-02] MEDS ORDERED: VANCOMYCIN 0.75 GM in IV D5W 250 ML IV SCH ×2
== END 2022-09-01 21:36 | DRG 871 ==
LOC: ER 21:06 → ICU 23:36 → UNDODISIN 09-02 00:30
PROVIDERS: ADMIT Nurse Practitioner Acute Care; ATTEND Nurse Practitioner Acute Care
PROC: 5A1935Z Respiratory Ventilation, Less than 24 Consecutive Hours (ICD-10-PCS; principal; 2022-09-01)
PROC: 0BH17EZ Insertion of Endotracheal Airway into Trachea, Via Natural or Artificial Opening (ICD-10-PCS; 2022-09-01)
PROC: 02HV33Z Insertion of Infusion Device into Superior Vena Cava, Percutaneous Approach (ICD-10-PCS; 2022-09-01)
PROC: B548ZZA Ultrasonography of Superior Vena Cava, Guidance (ICD-10-PCS; 2022-09-01)
DX: A41.9 Sepsis, unspecified organism (principal); G92.8 Other toxic encephalopathy; J96.01 Acute respiratory failure with hypoxia; R65.21 Severe sepsis with septic shock; N17.0 Acute kidney failure with tubular necrosis; J69.0 Pneumonitis due to inhalation of food and vomit; I13.0 Hypertensive heart and chronic kidney disease with heart failure and stage 1 through stage 4 chronic kidney disease, or unspecified chronic kidney disease; D61.818 Other pancytopenia; N39.0 Urinary tract infection, site not specified; E87.1 Hypo-osmolality and hyponatremia; J93.9 Pneumothorax, unspecified; Z20.822 Contact with and (suspected) exposure to COVID-19; Z66 Do not resuscitate; Z51.5 Encounter for palliative care; N18.9 Chronic kidney disease, unspecified; I25.10 Atherosclerotic heart disease of native coronary artery without angina pectoris; J44.9 Chronic obstructive pulmonary disease, unspecified; Z98.890 Other specified postprocedural states; Z79.85 Long-term (current) use of injectable non-insulin antidiabetic drugs; Z79.84 Long term (current) use of oral hypoglycemic drugs; Z79.899 Other long term (current) drug therapy; E78.5 Hyperlipidemia, unspecified; E11.22 Type 2 diabetes mellitus with diabetic chronic kidney disease; E11.649 Type 2 diabetes mellitus with hypoglycemia without coma; G43.909 Migraine, unspecified, not intractable, without status migrainosus; E11.40 Type 2 diabetes mellitus with diabetic neuropathy, unspecified; E11.36 Type 2 diabetes mellitus with diabetic cataract; Z86.69 Personal history of other diseases of the nervous system and sense organs; E03.9 Hypothyroidism, unspecified; E66.01 Morbid (severe) obesity due to excess calories; I27.20 Pulmonary hypertension, unspecified; K21.9 Gastro-esophageal reflux disease without esophagitis; K59.00 Constipation, unspecified; Z87.19 Personal history of other diseases of the digestive system; G89.29 Other chronic pain; M81.0 Age-related osteoporosis without current pathological fracture; Z82.49 Family history of ischemic heart disease and other diseases of the circulatory system; Z84.89 Family history of other specified conditions; E87.5 Hyperkalemia; T38.3X5A Adverse effect of insulin and oral hypoglycemic [antidiabetic] drugs, initial encounter; Y92.129 Unspecified place in nursing home as the place of occurrence of the external cause; R56.9 Unspecified convulsions; Z68.38 Body mass index [BMI] 38.0-38.9, adult; G47.33 Obstructive sleep apnea (adult) (pediatric); F32.A Depression, unspecified; F41.9 Anxiety disorder, unspecified; F43.10 Post-traumatic stress disorder, unspecified; I48.91 Unspecified atrial fibrillation; I70.0 Atherosclerosis of aorta; Z90.710 Acquired absence of both cervix and uterus; E11.65 Type 2 diabetes mellitus with hyperglycemia
CPT/HCPCS: 31720; 36415; 36600; 70450-TC; 71045-TC; 76770-TC; 80048-TC; 80061-TC; 80076-TC; 81001; 82533; 82803-TC; 82962-TC; 83605-TC; 83735-TC; 83880; 84100-TC; 84443-TC; 84484-TC; 85025-TC; 85730-TC; 87081-TC; 87086-TC; 94002-TC; 99082-TC; A4223; A4624; A6403; C9113; C9803; G0378; J0330; J0692; J1720; J1815; J2001; J2060; J2270; J2405; J2920; J2930; J3370; J3490; J7030; J7050; J7060